=== PATIENT | male | born 1950 | race Caucasian/White ===

== ENCOUNTER 2017-05-23 15:53 | Inpatient (IN) | payer MEDICARE ==
[~2017-05-23] VITALS: Ht 182.9 cm; Wt 113.4 kg
--- OUTSIDE RECORDS SUMMARY | 2017-05-23 15:56 | XMS REPORT | Clinical Summary ---
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 Disp. Refills Start End Date Status Date atorvastatin (LIPITOR) 80 03/13/20 Active MG tablet 16 clopidogrel (PLAVIX) 75 03/13/20 Active mg tablet 16 famotidine (PEPCID) 20 MG 03/13/20 Active tablet 16 FLUoxetine (PROzac) 40 MG 03/23/20 Active capsule 16 TRADJENTA 5 mg tablet 03/13/20 Active 16 lisinopril 03/13/20 Active (PRINIVIL,ZESTRIL) 5 mg 16 tablet metFORMIN (GLUCOPHAGE) 03/13/20 Active 1,000 mg tablet 16 metoprolol tartrate 03/13/20 Active (LOPRESSOR) 50 mg tablet 16 predniSONE (DELTASONE) 10 01/01/20 Active mg tablet 16 triamcinolone (KENALOG) 03/13/20 Active 0.5 % cream 16 rOPINIRole (REQUIP) 0.5 03/15/20 Active MG tablet 16 tamsulosin (FLOMAX) 0.4 02/18/20 Active mg capsule,extended 16 release 24hr Active Problems Problem Noted Date HTN (hypertension) 03/24/2016 DM (diabetes mellitus) 03/24/2016 Hypercholesterolemia 03/24/2016 Sleep apnea 03/24/2016 GERD (gastroesophageal reflux disease) 03/24/2016 CAD (coronary artery disease) 03/24/2016 History of placement of stent in LAD coronary artery 03/24/2016 Preoperative cardiovascular examination 03/24/2016 Encounters Date Type Specialty Care Team Description 07/31/2016 Orders Only Cardiology Brenda Del Angel MD after 05/22/2016 Family History Medical History Relation Name Comments Heart attack Brother Heart attack Father Cancer Mother Relation Name Status Comments Brother Father Mother Social History Tobacco Use Types Packs/Day Years Used Date Never Smoker Alcohol Use Drinks/Week oz/Week Comments No Sex Assigned at Date Recorded Not on file Last Filed Vital Signs Not on file Plan of Treatment Health Maintenance Due Date Last Done Comments FOOT EXAM 1962 OPHTHALMOLOGY EXAM 1962 URINE MICROALBUMIN 1962 COLONOSCOPY 2002 ZOSTER VACCINE 2012 INFLUENZA VACCINE 11/11/2016 Results Not on fileafter 05/22/2016 Insurance Payer Benefit Subscriber ID Type Phone Address Plan / Group MEDICARE MEDICARE [id number] Medicare [place], [place] [address] [place] [id number]
[2017-05-23] MEDS ORDERED: SODIUM CHLORIDE 0.9% 1000ML 1,000 ML IV STA (16:10)
[2017-05-23] MEDS ORDERED: TRADJENTA5 MG PO (16:31)
[2017-05-23] MEDS ORDERED: LISINOPRIL2.5 MG PO (16:31)
[2017-05-23] MEDS ORDERED: FLUOXETINE HCL20 M1 PO (16:31)
[2017-05-23] MEDS ORDERED: ATORVASTATIN CA20 MG PO (16:31)
[2017-05-23] MEDS ORDERED: METOPROLOL TART50 MG PO (16:31)
[2017-05-23] MEDS ORDERED: CLOPIDOGREL75 MG PO (16:31)
[2017-05-23] MEDS ORDERED: METFORMIN HCL500 MG PO (16:31)
[2017-05-23] MEDS ORDERED: FAMOTIDINE20 MG PO (16:31)
[2017-05-23] MEDS ORDERED: FENOFIBRATE67 MG PO (16:31)
[2017-05-23] MEDS ORDERED: ASPIR 8181 MG PO (16:31)
[2017-05-23] MEDS ORDERED: DICLOFENAC SODI75 MG PO (16:31)
[2017-05-23] MEDS ORDERED: MELOXICAM7.5 MG PO (16:31)
[2017-05-23] MEDS ORDERED: CIPRO500 MG PO (16:31)
[2017-05-23] MEDS ORDERED: TAMSULOSIN HCL0.4 MG PO (16:31)
[2017-05-23 17:23] LABS: BASOPHILS # (AUTO) 0.2 (0.0-0.1); BASOPHILS % 1.3 % (0.0-1.0); EOSINOPHILS # (AUTO) 0.4 (0.0-0.4); EOSINOPHILS % 2.5 % (0.0-6.0); HEMATOCRIT 52.9 % (38.2-49.6); HEMOGLOBIN 17.6 g/dL (14.0-18.0); LYMPHOCYTES # (AUTO) 5.1 (1.0-3.2); LYMPHOCYTES % 34.9 % (18.0-39.1); MEAN CORPUSCULAR HEMOGLOBIN 30.1 pg (28-32); MEAN CORPUSCULAR HGB CONC 33.3 g/dL (31-35); MEAN CORPUSCULAR VOLUME 90.6 fL (81-99); MONOCYTES # (AUTO) 1.3 (0.2-0.8); MONOCYTES % 8.5 % (4.4-11.3); NEUTROPHILS # (AUTO) 7.7 (2.1-6.9); NEUTROPHILS % 52.1 % (38.7-80.0); PLATELET COUNT 483 x10e3/uL (140-360); RED BLOOD COUNT 5.84 x10e6/uL (4.3-5.7); RED CELL DISTRIBUTION WIDTH 14.5 % (11.7-14.4)
[2017-05-23 17:31] LABS: INR 1.09; PROTHROMBIN TIME 13.3 seconds (11.9-14.5)
[2017-05-23 17:32] LABS: PARTIAL THROMBOPLASTIN TIME 25.8 seconds (23.8-35.5)
[2017-05-23 17:39] LABS: ALANINE AMINOTRANSFERASE 29 IU/L (0-55); ALBUMIN 3.9 g/dL (3.5-5.0); ALBUMIN/GLOBULIN RATIO 0.8 (0.8-2.0); ALKALINE PHOSPHATASE 59 IU/L (40-150); ANION GAP 16.2 mmol/L (8-16); BLOOD UREA NITROGEN 15 mg/dL (7-26); BUN/CREATININE RATIO 12 (6-25); CALCIUM 9.5 mg/dL (8.4-10.2); CARBON DIOXIDE 20 mmol/L (22-29); CHLORIDE 109 mmol/L (98-107); CREATINE KINASE 63 IU/L (30-200); CREATININE, SERUM 1.23 mg/dL (0.72-1.25); EST GLOMERULAR FILTRATION RATE 59 ML/MIN (60-); GLUCOSE 150 mg/dL (74-118); POTASSIUM 4.2 mmol/L (3.5-5.1); SODIUM 141 mmol/L (136-145)
--- NOTE | 2017-05-23 18:04 | Diagnostic Imaging Report ---
Examination: Single AP view of the chest. COMPARISON: None. INDICATION: Shortness of breath DISCUSSION: Lines/tubes: None. Lungs: The lungs are well inflated and clear. No pneumonia or pulmonary edema. Pleura: There is no pleural effusion or pneumothorax. Heart and mediastinum: The heart and the mediastinum are unremarkable. Bones and soft tissues: No acute bony abnormalities. IMPRESSION: 1. No acute cardiopulmonary abnormalities. Signed by: Dr. Brent Slater M.D. on 05/23/2017 6:00 PM
--- NOTE | 2017-05-23 18:06 | Diagnostic Imaging Report ---
History:weakness Comparison studies:None Technique: Axial images were obtained from the skull base to the vertex. Coronal and sagittal images reconstructed from the axial data. Intravenous contrast: None Findings: A metallic plate which covers an old right parietal craniectomy at the vertex results in artifacts that prevent adequate evaluation from the medina radiata to the vertex. Evaluation is, therefore, limited to the level of the bodies of the lateral ventricles. Scalp/skull: No abnormalities. Extra-axial spaces: No masses. No fluid collections. Brain sulci: Appropriate for age Ventricles: Normal in size and configuration. No hydrocephalus. Parenchyma: No abnormal densities. No masses, hemorrhage, acute or chronic cortical vascular insults. Sellar/suprasellar region: No abnormalities. Craniocervical junction: Patent foramen magnum. No Chiari one malformation. Incidental findings: Atherosclerotic calcifications in the carotid siphons and intracranial vertebral arteries . Impression: Evaluation is limited from the skull base to the level of the lateral ventricles due to artifacts related to a metallic plate which covers an old right parietal craniectomy. 1. No acute abnormalities in the visualized sections through the brain. 2. Mild supratentorial white matter vessel ischemic changes. Signed by: Dr. Fox Orta M.D. on 05/23/2017 6:03 PM
[2017-05-23 18:37] LABS: BILIRUBIN,URINE NEGATIVE (NEGATIVE); CLARITY,URINE CLEAR (CLEAR); COLOR,URINE YELLOW (YELLOW); KETONES,URINE NEGATIVE (NEGATIVE); LEUKOCYTE ESTERASE ,URINE NEGATIVE (NEGATIVE); NITRITE,URINE NEGATIVE (NEGATIVE); URINE UROBILINOGEN 0.2 mg/dL (0.2 - 1)
[2017-05-23 18:51] LABS: PROTEIN,URINE DIPSTICK 1+ (NEGATIVE)
[2017-05-23 19:00] LABS: BACTERIA,URINE FEW /HPF; EPITHELIAL CELLS,URINE RARE /LPF; RBC,URINE 21-50 /HPF (0-5); WBC,URINE (MAN) 0-5 /HPF (0-5)
[2017-05-23] MEDS ORDERED: CEFTRIAXONE SOD 1 GM VIAL IV ONE (19:15)
[2017-05-23] MEDS ORDERED: DEXTROSE 50% SYRINGE 50 ML IV PRN (19:30)
[2017-05-23] MEDS ORDERED: MORPHINE SULFATE 2 MG/ML SYR IV PRN (19:30)
[2017-05-23] MEDS ORDERED: LORAZEPAM INJ 2 MG/ML VIAL IV PRN ×2 (19:45→20:00)
[2017-05-23] MEDS: CEFTRIAXONE SOD 1 GM VIAL IV SCH (19:51)
[2017-05-23] MEDS: SODIUM CHLORIDE 0.9% 1000ML 1,000 ML IV SCH (19:51)
[2017-05-23] MEDS: ONDANSETRON HCL INJ 2 MG/ML VIAL IV PRN (19:52)
[2017-05-23] MEDS: HYDROMORPHONE 2MG/ML 2 MG/ML ML IV PRN (20:30)
[2017-05-23] MEDS: INSULIN REGULAR, HUMAN 100 UNIT/1 ML 3ML VIAL SQ SCH (20:38)
--- OUTSIDE RECORDS SUMMARY | 2017-05-23 20:52 | XMS REPORT ---
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 Allergies, Adverse Reactions, Alerts This patient has no known allergies or adverse reactions. Medications This patient has no known medications. Results Test Description Test Time Test Comments Text Results Atomic Results Result Comments CHEST SINGLE (PORTABLE) [address] [address] Patient Name: UNRULY LYONS MR #: [id number] : 1950 Age/Sex: 66/M Req #: [id number] Adm Physician: Ordered by: TAMARA KU MD Report #: [id number] Location: ER Room/Bed: Procedure: [id number] DX/CHEST SINGLE (PORTABLE) Exam Date: 05/23/17 Exam Time: 1735 REPORT STATUS: Signed Examination: Single AP view of the chest. COMPARISON: None. INDICATION: Shortness of breath DISCUSSION: Lines/tubes: None. Lungs: The lungs are well inflated and clear. No pneumonia or pulmonary edema. Pleura: There is no pleural effusion or pneumothorax. Heart and mediastinum: The heart and the mediastinum are unremarkable. Bones and soft tissues: No acute bony abnormalities. IMPRESSION: 1. No acute cardiopulmonary abnormalities. Signed by: Dr. Augusto Coleman M.D. on 2017 6:00 PM Dictated By: AUGUSTO COLEMAN MD 99 Transcribed By: DULCE MARIA on 05/23/17 1800 COPY TO: TAMARA KU MD CT BRAIN WO [place] [address] Patient Name: UNRULY LYONS MR #: [id number] : 1950 Age/Sex: 66/M Req #: [id number] Adm Physician: Ordered by: TAMARA KU MD Report #: [id number] Location: ER Room/Bed: Procedure: [id number] CT/CT BRAIN WO Exam Date: 05/23/17 Exam Time: 1735 REPORT STATUS: Signed History:weakness Comparison studies:None Technique: Axial images were obtained from the skull base to the vertex. Coronal and sagittal images reconstructed from the axial data. Intravenous contrast: None Findings: A metallic plate which covers an old right parietal craniectomy at the vertex results in artifacts that prevent adequate evaluation from the medina radiata to the vertex. Evaluation is, therefore, limited to the level of the bodies of the lateral ventricles. Scalp/skull : No abnormalities. Extra-axial spaces: No masses. No fluid collections. Brain sulci: Appropriate for age Ventricles: Normal in size and configuration. No hydrocephalus. Parenchyma: No abnormal densities. No masses, hemorrhage, acute or chronic cortical vascular insults. Sellar/suprasellar region: No abnormalities. Craniocervical junction: Patent foramen magnum. No Chiari one malformation. Incidental findings: Atherosclerotic calcifications in the carotid siphons and intracranial vertebral arteries . Impression: Evaluation is limited from the skull base to the level of the lateral ventricles due to artifacts related to a metallic plate which covers an old right parietal craniectomy. 1. No acute abnormalities in the visualized sections through the brain. 2. Mild supratentorial white matter vessel ischemic changes. Signed by: Dr. Fox Orta M.D. on 05/23/2017 6:03 PM Dictated By: FOX CLARKE MD, MD 02 Transcribed By: DULCE MARIA on 05/23/171802 COPY TO: TAMARA KU MD
--- OUTSIDE RECORDS SUMMARY | 2017-05-23 20:52 | XMS REPORT | Clinical Summary ---
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
[2017-05-23] MEDS ORDERED: ATORVASTATIN 20 MG TAB PO SCH (21:00)
[2017-05-23 23:25] VITALS: BP 154/80
[2017-05-24] MEDS: HYDROMORPHONE 2MG/ML 2 MG/ML ML IV PRN ×3 (03:00→23:55)
[2017-05-24] MEDS: SODIUM CHLORIDE 0.9% 1000ML 1,000 ML IV SCH ×3 (06:13→21:19)
[2017-05-24] MEDS: INSULIN REGULAR, HUMAN 100 UNIT/1 ML 3ML VIAL SQ SCH ×4 (07:30→21:00)
[2017-05-24 07:33] LABS: BASOPHILS # (AUTO) 0.2 (0.0-0.1); BASOPHILS % 1.1 % (0.0-1.0); EOSINOPHILS # (AUTO) 0.3 (0.0-0.4); EOSINOPHILS % 2.2 % (0.0-6.0); HEMATOCRIT 49.2 % (38.2-49.6); HEMOGLOBIN 15.8 g/dL (14.0-18.0); LYMPHOCYTES % 35.5 % (18.0-39.1); MEAN CORPUSCULAR HEMOGLOBIN 29.9 pg (28-32); MEAN CORPUSCULAR HGB CONC 32.1 g/dL (31-35); MEAN CORPUSCULAR VOLUME 93.2 fL (81-99); MONOCYTES # (AUTO) 1.2 (0.2-0.8); MONOCYTES % 8.5 % (4.4-11.3); NEUTROPHILS # (AUTO) 7.3 (2.1-6.9); NEUTROPHILS % 52.1 % (38.7-80.0); PLATELET COUNT 431 x10e3/uL (140-360); RED BLOOD COUNT 5.28 x10e6/uL (4.3-5.7); RED CELL DISTRIBUTION WIDTH 14.6 % (11.7-14.4)
[2017-05-24 08:00] VITALS: BP 180/95
[2017-05-24 08:06] LABS: BLOOD UREA NITROGEN 14 mg/dL (7-26); BUN/CREATININE RATIO 14 (6-25); CALCIUM 8.5 mg/dL (8.4-10.2); CARBON DIOXIDE 20 mmol/L (22-29); CHLORIDE 111 mmol/L (98-107); CREATININE, SERUM 1.03 mg/dL (0.72-1.25); EST GLOMERULAR FILTRATION RATE > 60 ML/MIN (60-); GLUCOSE 127 mg/dL (74-118); SODIUM 140 mmol/L (136-145)
[2017-05-24] MEDS: NON-FORMULARY MEDICATION (Linagliptin (Tradjenta) 5 MG) PO SCH (08:17)
[2017-05-24] MEDS: TAMSULOSIN HCL 0.4 MG CAP PO SCH (08:31)
[2017-05-24] MEDS: METOPROLOL TARTRATE 50 MG TAB PO SCH ×2 (08:32→17:00)
[2017-05-24] MEDS: MELOXICAM 7.5 MG TAB PO SCH (08:32)
[2017-05-24] MEDS: LISINOPRIL 2.5 MG TAB PO SCH (08:32)
[2017-05-24] MEDS: CLOPIDOGREL BISULFATE 75 MG TAB PO SCH (08:32)
[2017-05-24] MEDS: FAMOTIDINE 20 MG TAB PO SCH ×2 (08:32→17:00)
[2017-05-24] MEDS: DICLOFENAC SOD 50 MG TAB PO SCH ×2 (08:33→17:00)
[2017-05-24] MEDS: FENOFIBRATE 145 MG TAB PO SCH (08:33)
[2017-05-24] MEDS: FLUOXETINE HCL 20 MG CAP PO SCH (08:33)
[2017-05-24] MEDS ORDERED: NON-FORMULARY MEDICATION (Diclofenac Sodium 75 MG) PO SCH (09:00)
[2017-05-24] MEDS ORDERED: NON-FORMULARY MEDICATION (Fenofibrate,Micronized (Fenofibrate) 160 MG) PO SCH (09:00)
[2017-05-24] MEDS ORDERED: METFORMIN HCL 500 MG TAB PO SCH ×2 (09:00→17:00)
[2017-05-24] MEDS ORDERED: OSELTAMIVIR PHOSPHATE 75 MG CAP PO SCH (09:00)
[2017-05-24] MEDS ORDERED: NON-FORMULARY MEDICATION (Linagliptin (Tradjenta) 5 MG) PO SCH (09:00)
[2017-05-24] MEDS ORDERED: ASPIRIN 81 MG CHEW TAB PO SCH (09:00)
[2017-05-24 09:09] LABS: CREATINE KINASE MB 1.1 ng/mL (0.00-5.00)
[2017-05-24 09:36] VITALS: BP 180/95
--- NOTE | 2017-05-24 09:44 | Diagnostic Imaging Report ---
EXAMINATION: Chest, CHEST SINGLE (PORTABLE) INDICATION: Chest pain COMPARISON: Portable chest 05/23/2017 FINDINGS: LINES: None. Heart: Normal cardiac silhouette. Vascular: The pulmonary vasculature is within normal limits. Atherosclerotic calcifications of the aortic arch. Mediastinum: No mediastinal, hilar, or axillary mass or lymphadenopathy. Lungs: No parenchymal mass. No focal consolidation. Bibasilar atelectasis. Pleura: No pleural effusion. No pneumothorax. Bones: No acute osseous abnormality. Degenerative changes of the thoracic spine. Postoperative changes of the left shoulder. Soft tissues: Normal. Impression: No acute radiographic abnormality. Signed by: Dr. Reymundo Jones M.D. on 05/24/2017 9:40 AM
[2017-05-24 12:20] VITALS: BP 145/91
[2017-05-24] MEDS ORDERED: ACETAMINOPHEN 325 MG SUPP PR PRN (15:15)
[2017-05-24 15:44] LABS: CHOL/HDL RATIO 4.6 (3.9-4.7)
[2017-05-24] MEDS: AZITHROMYCIN 500MG/NS 250 ML 250 ML IV SCH (15:51)
[2017-05-24] MEDS: ENOXAPARIN SODIUM INJ 100 MG/ML SYR SC SCH (15:51)
[2017-05-24 16:00] VITALS: BP 155/91
[2017-05-24 16:19] LABS: CREATINE KINASE 69 IU/L (30-200)
--- NOTE | 2017-05-24 16:19 | History and Physical ---
PRIMARY CARE PHYSICIAN: Dr. Soto. CHIEF COMPLAINT: Weakness. HISTORY OF PRESENT ILLNESS: This is a 66-year-old man with a history of stroke and myocardial infarction, now developing right arm weakness and slurred speech. Therefore, he came to the hospital. Here a CT scan was done, which was negative. He was admitted for further evaluation and management. The patient said he was able to move his right arm 1 week ago. PAST MEDICAL HISTORY 1. Diabetes mellitus, type 2. 2. Hypertension. 3. Stroke. 4. Myocardial infarction, status post stent in January 2017. 5. Ambulatory dysfunction with left above-knee amputation due to injury on the job many years ago. PAST SURGICAL HISTORY 1. Left AKA. 2. Coronary artery stent placement in January 2017. ALLERGIES: PER ELECTRONIC MEDICAL RECORD. FAMILY HISTORY/SOCIAL HISTORY: Patient lives alone. He is single. No children. No alcohol, illicits or cigarettes. MEDICATIONS: Per electronic medical record. REVIEW OF SYSTEMS: Denies any chest pain. PHYSICAL EXAMINATION VITAL SIGNS: Have been reviewed. GENERAL: A tired-appearing man resting in bed. HEENT: Anicteric. Pupils are responsive to light. No oral lesions. CARDIOVASCULAR: Normal S1 and S2. LUNGS: Moderate breath sounds. ABDOMEN: Soft, nontender, nondistended. EXTREMITIES: He has trace edema. He has left AKA with stump site well healed. SKIN: Dry. PSYCHIATRIC: Flat affect. NEUROLOGIC: He is awake, alert and oriented x2. He moves all his extremities, but his right hand is 1/5. His left arm is 4/5. Other extremities are 4/5. He has slurred speech. He has facial asymmetry, and he has drooling. LABS: Reviewed. MEDICATIONS: Reviewed. ASSESSMENT AND PLAN: This is a 66-year-old man. 1. Clinically acute stroke. CT scan is negative. Obtain MRI and MRA of the head and neck. Will start the patient on aspirin. He is already on Plavix. Will also add a statin medication. Will obtain a lipid panel. Will get physical therapy on board. Speech evaluation. Make the patient n.p.o. Put him on Lovenox 100 q.12 h. Consult neurology and get a 2-D echocardiogram to rule out an embolic event. 2. Obesity/diabetes mellitus, type 2. Obtain hemoglobin A1c and lipid panel. Will also use sliding scale and an ADA diet when he is able to eat. 3. Acute kidney injury. Rehydrate and reassess. 4. Acute bronchitis. Patient is not coughing at this time. Will discontinue Tamiflu, as his flu screen was negative. Will reassess. 5. Leukocytosis, unclear etiology. Will treat his acute bronchitis with doxycycline 100 IV q.12 h. for 5 days. 6. Coronary artery disease with history of stent. Will obtain echocardiogram and continue his home dose of Plavix and beta madina, also aspirin. 7. Ambulatory dysfunction with left above-knee amputation. Physical therapy consultation. 8. Prophylaxis: Pepcid while on anticoagulant. 9. Disposition: Start anticoagulation. Obtain 2-D echocardiogram. Obtain MRI and MRA. Physical therapy consultation. Job#: [id number]
[2017-05-24] MEDS: FAMOTIDINE 20 MG/2 ML VIAL IV SCH (17:25)
[2017-05-24 19:50] VITALS: BP 167/106
[2017-05-24] MEDS: CEFTRIAXONE SOD 1 GM VIAL IV SCH (21:00)
[2017-05-24] MEDS: ATORVASTATIN 40 MG TAB PO SCH (21:00)
[2017-05-24] MEDS: ONDANSETRON HCL INJ 2 MG/ML VIAL IV PRN (23:50)
[2017-05-25] VITALS (7 sets, daily range): BP systolic 137–168; BP diastolic 68–106
[2017-05-25] MEDS: SODIUM CHLORIDE 0.9% 1000ML 1,000 ML IV SCH ×2 (03:22→14:12)
[2017-05-25] MEDS: ENOXAPARIN SODIUM INJ 100 MG/ML SYR SC SCH ×2 (04:12→17:00)
[2017-05-25] MEDS: ONDANSETRON HCL INJ 2 MG/ML VIAL IV PRN (06:20)
[2017-05-25] MEDS: HYDROMORPHONE 2MG/ML 2 MG/ML ML IV PRN ×3 (06:21→21:25)
[2017-05-25] MEDS: INSULIN REGULAR, HUMAN 100 UNIT/1 ML 3ML VIAL SQ SCH ×4 (07:30→21:00)
--- NOTE | 2017-05-25 07:33 | Progress Note ---
DATE: May 25, 2017 TIME: 7:05 a.m. OVERNIGHT: CPAP mask in place. Feeling a little better. REVIEW OF SYSTEMS: Denies any dizziness. PHYSICAL EXAMINATION VITAL SIGNS: Reviewed. GENERAL: A tired-appearing man resting in bed. HEENT: Anicteric. CARDIOVASCULAR: Normal S1 and S2. LUNGS: Moderate breath sounds. ABDOMEN: Soft, nontender and nondistended. EXTREMITIES: Trace edema. He left AKA with stump well-healed. SKIN: Dry. PSYCHIATRIC: Flat affect. NEUROLOGICAL: Alert, awake and oriented times 2. Moves all extremities. His right hand is 1/5 in the extremities. Left hand 4/5. He has slurred speech persists. He has facial asymmetry. Some drooling. LABS: Reviewed. MEDICATIONS: Reviewed. ASSESSMENT: A 66-year-old man with: 1. Clinically acute stroke. 2. Obesity/diabetes mellitus, type 2. 3. Acute kidney injury. 4. Acute bronchitis. 5. Leukocytosis. 6. Coronary artery disease with history of stent. 7. Ambulatory dysfunction with left knee amputation. PLAN 1. Leukocytosis beginning to improve. 2. LDL is 84. Hemoglobin A1c 8.9. 3. Influenza screening was negative. 4. MRI imaging is pending. 5. Continue Lovenox 100 mg q.12 h. 6. Continue ceftriaxone and azithromycin for acute bronchitis. 7. Continue Pepcid for GI prophylaxis. 8. Disposition: Follow up MRI and MRA. Continue anticoagulation. Follow up neurology recommendations. Job#: [id number] [place]
[2017-05-25] MEDS: ASPIRIN 81 MG CHEW TAB PO SCH (09:00)
[2017-05-25] MEDS: FENOFIBRATE 145 MG TAB PO SCH (09:00)
[2017-05-25] MEDS: DICLOFENAC SOD 50 MG TAB PO SCH ×2 (09:00→17:00)
[2017-05-25] MEDS: CLOPIDOGREL BISULFATE 75 MG TAB PO SCH (09:00)
[2017-05-25] MEDS: METOPROLOL TARTRATE 50 MG TAB PO SCH ×2 (09:00→17:00)
[2017-05-25] MEDS: MELOXICAM 7.5 MG TAB PO SCH (09:00)
[2017-05-25] MEDS: FAMOTIDINE 20 MG TAB PO SCH (09:00)
[2017-05-25] MEDS: FLUOXETINE HCL 20 MG CAP PO SCH (09:00)
[2017-05-25] MEDS: NON-FORMULARY MEDICATION (Linagliptin (Tradjenta) 5 MG) PO SCH (09:00)
[2017-05-25] MEDS: TAMSULOSIN HCL 0.4 MG CAP PO SCH (09:00)
[2017-05-25] MEDS: LISINOPRIL 2.5 MG TAB PO SCH (09:00)
[2017-05-25] MEDS: FAMOTIDINE 20 MG/2 ML VIAL IV SCH ×2 (09:15→17:00)
[2017-05-25] MEDS: NYSTATIN 100,000 UNITS/GM CRM 30GM TUBE TOP SCH ×2 (10:42→17:15)
--- NOTE | 2017-05-25 14:36 | Consultation ---
DATE OF CONSULTATION: May 25, 2017, at 12 p.m. (noon) NEUROLOGICAL CONSULTATION ATTENDING PHYSICIAN: Dr. Ronal Dwyer REASON FOR CONSULTATION: Stroke. This is a 66-year-old male who has a history of hypertension and diabetes mellitus. Apparently for several days he has been having some slurred speech and weakness of the right arm, the reason for which his sister brought him to the hospital on May 23, 2017. He was seen in the emergency room. He was not able to move the right arm or right leg and had slurred speech. CT scan in the emergency room was negative. The patient was admitted for further evaluation. He has a history of diabetes mellitus. He had a previous stroke. He has myocardial infarction with stents. SURGICAL HISTORY: Above-knee amputation on the left side. Coronary stent that was placed in 2017. ALLERGIES: NONE KNOWN. MEDICATIONS: Have been reviewed in detail. REVIEW OF SYSTEMS: Unable to perform because of the patient's mental status. PHYSICAL EXAMINATION VITAL SIGNS: Blood pressure today was 139/82, pulse 70s. He was afebrile. LUNGS: Clear to auscultation. HEART: Regular sinus rhythm. No murmur. ABDOMEN: Nontender. Soft. LOWER EXTREMITIES: No edema. No cyanosis. No clubbing. NEUROLOGIC EXAMINATION: The patient is awake. Gaze is deviated to the right. Able to follow commands well. Has dysarthric speech, unintelligible. Cranial nerves: Pupils are both equal with sluggish reaction. The extraocular movements are full. Visual ennis are normal. Right facial weakness, central type. The gag reflex is decreased. Marked weakness in the right upper and right lower extremities with extension plantar response on the right side. HEAD: Normocephalic. NECK: Supple. Carotid pulsations were present bilaterally. There was no bruit. LABORATORY WORKUP: Comprehensive metabolic panel: Sodium 140, potassium 4, BUN 14, creatinine 1.03, estimated GFR greater than 60, glucose 127, triglycerides 127, cholesterol 139. Liver enzymes are normal. Urinalysis: 1+ protein, 1+ glucose, 4+ urine. RBCs 21-50. WBCs 0-5. MICROBIOLOGY: Urine culture negative. CT SCAN OF THE BRAIN: Report shows he has a craniotomy on the right side. No acute abnormalities in the parenchyma. Mild supratentorial white matter vascular ischemic changes. IMPRESSION 1. Acute left middle cerebral artery stroke with residual dysarthric speech. Right facial weakness and entire right hemiparesis. Laboratory workup has been reviewed in detail. 2. Hypertension. 3. Diabetes mellitus. 4. Coronary artery disease. The patient is unable to have an MRI of the brain because of the metallic plate on the right side of the head and recent stents. We are going to do a carotid Doppler, echocardiogram, speech therapy, PT evaluation. We are going to have a followup CT scan of the head without contrast today. Job#: [id number]
[2017-05-25] MEDS: AZITHROMYCIN 500MG/NS 250 ML 250 ML IV SCH (16:45)
--- NOTE | 2017-05-25 16:50 | Diagnostic Imaging Report ---
EXAMINATION: Head CT without contrast HISTORY: Acute generalized weakness, evaluate for acute stroke COMPARISON: Head CT and 05/23/2017 TECHNIQUE: Multidetector axial images were obtained without contrast from the foramen magnum to the vertex . The images were reconstructed using brain and bone algorithms. Thin section brain images were reformatted into coronal and sagittal planes. Image quality: A metallic plate which covers an old right parietal craniectomy at the vertex results in artifacts that prevent adequate evaluation from the medina radiata to the vertex. Evaluation is, therefore, limited to the level of the bodies of the lateral ventricles. FINDINGS: Parenchyma: 1. Scattered and mildly confluent periventricular white matter hypodensities, most likely nonspecific chronic microvascular ischemic changes. Age-indeterminate likely chronic lacunar referred in the right thalamus and possibly the left head of the caudate. 2. No mass or hemorrhage. No CT evidence of acute territorial vascular insult. Extra-axial spaces:No abnormal density. No extra-axial fluid collections Brain volume: Normal for age. Ventricles: No hydrocephalus or displacement. Arteries: No density suggestive of thrombus. Dural sinuses: No abnormal density. Extra-axial spaces: No abnormal density. Foramen magnum: No mass, Chiari malformation, or basilar invagination. Sella: No obvious mass. Paranasal/mastoid sinuses: Imaged portions unremarkable. Skull/Scalp: Large right parietal metallic plate which covers an old right parietal craniectomy. IMPRESSION: 1. The superior half of the brain cannot be evaluated due to metallic artifact. 2. Grossly no acute intracranial abnormality in the visualized sections of the brain. Particularly no intracranial hemorrhage. 3. Stable mild chronic microvascular ischemic changes. Signed by: Dr. Elizabeth Su M.D. on 05/25/2017 4:46 PM
[2017-05-25] MEDS: CEFTRIAXONE SOD 1 GM VIAL IV SCH (20:55)
[2017-05-25] MEDS: ATORVASTATIN 40 MG TAB PO SCH (20:55)
[2017-05-25] MEDS ORDERED: LIDOCAINE 5% PATCH TP SCH (23:00)
[2017-05-26] VITALS: BP 158/82
[2017-05-26] MEDS: SODIUM CHLORIDE 0.9% 1000ML 1,000 ML IV SCH ×2 (03:22→11:22)
[2017-05-26 04:00] VITALS: BP 181/99
[2017-05-26] MEDS: ENOXAPARIN SODIUM INJ 100 MG/ML SYR SC SCH ×2 (04:39→16:15)
[2017-05-26] MEDS: LABETALOL HCL 5 MG/ML 20ML VIAL IV PRN (06:30)
[2017-05-26] MEDS: LIDOCAINE 5% PATCH TP SCH (06:50)
[2017-05-26] MEDS: INSULIN REGULAR, HUMAN 100 UNIT/1 ML 3ML VIAL SQ SCH ×4 (07:30→21:00)
[2017-05-26 07:48] VITALS: BP 168/83
[2017-05-26] MEDS: NYSTATIN 100,000 UNITS/GM CRM 30GM TUBE TOP SCH ×2 (08:50→16:38)
[2017-05-26] MEDS: NON-FORMULARY MEDICATION (Linagliptin (Tradjenta) 5 MG) PO SCH (09:00)
[2017-05-26] MEDS: HYDROMORPHONE 2MG/ML 2 MG/ML ML IV PRN ×2 (10:15→18:30)
[2017-05-26] MEDS: FAMOTIDINE 20 MG/2 ML VIAL IV SCH ×2 (11:30→16:37)
[2017-05-26] MEDS: ASPIRIN 81 MG CHEW TAB PO SCH (11:30)
[2017-05-26] MEDS: CLOPIDOGREL BISULFATE 75 MG TAB PO SCH (11:30)
[2017-05-26] MEDS: TAMSULOSIN HCL 0.4 MG CAP PO SCH (11:30)
[2017-05-26] MEDS: FENOFIBRATE 145 MG TAB PO SCH (11:30)
[2017-05-26] MEDS: DICLOFENAC SOD 50 MG TAB PO SCH ×2 (11:30→16:38)
[2017-05-26] MEDS: MELOXICAM 7.5 MG TAB PO SCH (11:30)
[2017-05-26] MEDS: METOPROLOL TARTRATE 50 MG TAB PO SCH ×2 (11:30→16:38)
[2017-05-26] MEDS: LISINOPRIL 2.5 MG TAB PO SCH (11:30)
[2017-05-26] MEDS: FLUOXETINE HCL 20 MG CAP PO SCH (11:30)
[2017-05-26 11:43] VITALS: BP 173/81
--- NOTE | 2017-05-26 15:51 | Diagnostic Imaging Report ---
PROCEDURE:X-RAY RIGHT SHOULDER, COMPLETE COMPARISON:[facility], DX, CHEST SINGLE (PORTABLE), 05/24/2017, 9:16. INDICATIONS:SEVERE PAIN, RT. SHOULDER PAIN FINDINGS: Normal mineralization. No definite acute, displaced fracture or dislocation. No lytic or blastic lesions. Stable degenerative changes in the glenohumeral joint. Soft tissues are unremarkable. Visualized portions of the right lung are clear. CONCLUSION: No definite acute displaced fracture or dislocation. Correlate clinically for need for further imaging. Rahul Nelson M.D. Dictated by: Rahul Nelson M.D. on 05/26/2017 at 16:01 Electronically approved by: Rahul Nelson M.D. on 05/26/2017 at 16:01
[2017-05-26 16:00] VITALS: BP 175/83
[2017-05-26] MEDS: AZITHROMYCIN 500MG/NS 250 ML 250 ML IV SCH (16:00)
[2017-05-26 20:00] VITALS: BP 156/87
[2017-05-26] MEDS: ATORVASTATIN 40 MG TAB PO SCH (20:40)
[2017-05-26] MEDS: CEFTRIAXONE SOD 1 GM VIAL IV SCH (20:40)
[2017-05-27] VITALS (7 sets, daily range): BP systolic 156–196; BP diastolic 86–103
[2017-05-27] MEDS: HYDROMORPHONE 2MG/ML 2 MG/ML ML IV PRN ×3 (02:46→21:45)
[2017-05-27] MEDS ORDERED: HYDROMORPHONE 1MG/1ML INJ ONE ×3 (02:47→21:44)
[2017-05-27] MEDS: SODIUM CHLORIDE 0.9% 1000ML 1,000 ML IV SCH (03:22)
[2017-05-27] MEDS: ENOXAPARIN SODIUM INJ 100 MG/ML SYR SC SCH ×2 (03:33→16:57)
[2017-05-27] MEDS: LABETALOL HCL 5 MG/ML 20ML VIAL IV PRN ×2 (04:39→11:30)
[2017-05-27] MEDS: TRAMADOL/APAP 37.5MG-325MG TAB PO PRN (05:19)
[2017-05-27] MEDS: INSULIN REGULAR, HUMAN 100 UNIT/1 ML 3ML VIAL SQ SCH ×4 (07:30→21:00)
[2017-05-27] MEDS ORDERED: ASPIRIN 300 MG SUPP PR SCH (09:00)
[2017-05-27] MEDS: NON-FORMULARY MEDICATION (Linagliptin (Tradjenta) 5 MG) PO SCH (09:00)
[2017-05-27] MEDS: FAMOTIDINE 20 MG/2 ML VIAL IV SCH ×2 (09:34→17:33)
[2017-05-27] MEDS: METOPROLOL TARTRATE 50 MG TAB PO SCH ×2 (09:34→17:34)
[2017-05-27] MEDS: CLOPIDOGREL BISULFATE 75 MG TAB PO SCH (09:34)
[2017-05-27] MEDS: MELOXICAM 7.5 MG TAB PO SCH (09:34)
[2017-05-27] MEDS: TAMSULOSIN HCL 0.4 MG CAP PO SCH (09:34)
[2017-05-27] MEDS: ASPIRIN 81 MG CHEW TAB PO SCH (09:34)
[2017-05-27] MEDS: FLUOXETINE HCL 20 MG CAP PO SCH (09:35)
[2017-05-27] MEDS: LISINOPRIL 2.5 MG TAB PO SCH (09:35)
[2017-05-27] MEDS: FENOFIBRATE 145 MG TAB PO SCH (09:35)
[2017-05-27] MEDS: DICLOFENAC SOD 50 MG TAB PO SCH ×2 (09:35→17:33)
[2017-05-27] MEDS: NYSTATIN 100,000 UNITS/GM CRM 30GM TUBE TOP SCH ×2 (09:35→17:33)
[2017-05-27] MEDS: LIDOCAINE 5% PATCH TP SCH (09:35)
--- NOTE | 2017-05-27 09:47 | Progress Note ---
DATE: May 26, 2017 Mr. Vaughn suffered a left middle cerebral artery stroke with residual expressive and receptive aphasia, right facial weakness, dysphasia, right hemiparesis. He has history of hypertension, diabetes mellitus. VITAL SIGNS: Today, blood pressure 175/83, pulse 64, afebrile. Report of the CAT scan showed no change from the first one in the emergency room. No acute pathology. 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 He has amputation of the left leg above the knee. The patient today is more awake. He follows commands better than yesterday. Speech is rather dysarthric still. At times, he is able to understand some words. He follows simple verbal commands. He is complaining of right shoulder pain. Extraocular movements were full. Visual field was normal. Right arm painful to move, apparently had some trouble with the right shoulder. The patient is able to wiggle the toes and bend the right knee. The patient is in the process of continuing physical therapy and speech therapy. On the swallowing evaluation, the patient failed to swallow. He has significant dysphagia. He has NG tube. Continue with Lovenox subcutaneously. I have discussed with the sister, on Mr. Vaughn, and the prognosis and the need to start making plans to transfer for rehab. Job#: [id number]
--- NOTE | 2017-05-27 10:11 | Progress Note ---
DATE: May 26, 2017 TIME: 7:30 a.m. OVERNIGHT: No events. REVIEW OF SYSTEMS: Denies any chest pain. PHYSICAL EXAMINATION VITAL SIGNS: Reviewed. GENERAL: A tired-appearing man resting in bed. HEENT: Anicteric. CARDIOVASCULAR: Normal S1 and S2. LUNGS: Moderate breath sounds. ABDOMEN: Soft, nontender and nondistended. EXTREMITIES: He has a left AKA stump well-healed. SKIN: Dry. PSYCHIATRIC: Flat affect. NEUROLOGICAL: Alert and awake, but he has slurred speech. He has facial asymmetry. He has right hand 1/5 motor strength. He has some drooling. LABS: Reviewed. MEDICATIONS: Reviewed. ASSESSMENT: A 67-year-old man with: 1. Clinical acute stroke. 2. Obesity/diabetes mellitus, type 2. 3. Acute kidney injury. 4. Acute bronchitis. 5. Leukocytosis. 6. Coronary artery disease with a history of stent. 7. Ambulatory dysfunction with left knee amputation. PLAN 1. Continue physical therapy. 2. Continue antibiotics. 3. Follow up labs. 4. May need acute inpatient rehab for management of his stroke and regain of his function. 5. Prophylaxis. Continue Pepcid. 6. Disposition. Continue current care. Consult Dr. Tineo of rehab services. Job#: [id number] AIDEN
--- NOTE | 2017-05-27 10:18 | Progress Note ---
DATE: May 27, 2017 TIME: 9:44 a.m. OVERNIGHT: No events. REVIEW OF SYSTEMS: Denies any chest pain. PHYSICAL EXAMINATION VITAL SIGNS: Reviewed. GENERAL: A tired-appearing man resting in bed. HEENT: Anicteric. CARDIOVASCULAR: Normal S1 and S2. LUNGS: Moderate breath sounds. ABDOMEN: Soft and nontender. EXTREMITIES: Trace edema. He has a left AKA stump site well-healed. SKIN: Dry. PSYCHIATRIC: Flat affect. NEUROLOGIC: He is awake and alert. He moves his extremities, but his right arm is 1/5 motor strength. His right shoulder is tender. He has slurred speech. He has facial asymmetry. He has some drooling. He has an NG tube in place. LABS: Reviewed. MEDICATIONS: Reviewed. ASSESSMENT: A 66-year-old man with: 1. Acute stroke with right hand weakness. 2. Obesity/diabetes mellitus, type 2. 3. Acute kidney injury. 4. Acute bronchitis. 5. Leukocytosis. 6. Coronary artery disease with a history of stent. 7. Ambulatory dysfunction with left knee amputation. 8. He has right complex regional pain syndrome of the right shoulder: This is secondary to stroke and could be partly secondary to diabetes as well. Will treat pain. PLAN 1. Continue physical therapy. Dr. Tineo has been consulted for acute rehab evaluation. Will discuss this with his . 2. Continue feeding by NG tube. Will need to swallow eval maybe in 2 days from now. 3. His LDL and hemoglobin A1c were 84 and 8.9. 4. Continue fenofibrate, aspirin, beta madina, Plavix, and Lovenox treatment dose. 5. Uncontrolled hypertension. Discontinue fluids and continue with water flushes and tube feeding. 6. Continue antibiotics. 7. Obtain labs this morning. 8. Glucose well controlled. No need for home insulin regimen. 9. Cultures remain negative. 10. Discharge planning. Physical therapy. Job#: [id number] AIDEN
[2017-05-27 10:29] LABS: BASOPHILS # (AUTO) 0.1 (0.0-0.1); BASOPHILS % 0.9 % (0.0-1.0); EOSINOPHILS # (AUTO) 0.3 (0.0-0.4); EOSINOPHILS % 1.9 % (0.0-6.0); HEMATOCRIT 46.5 % (38.2-49.6); HEMOGLOBIN 15.2 g/dL (14.0-18.0); LYMPHOCYTES # (AUTO) 3.1 (1.0-3.2); LYMPHOCYTES % 21.4 % (18.0-39.1); MEAN CORPUSCULAR HEMOGLOBIN 30.5 pg (28-32); MEAN CORPUSCULAR HGB CONC 32.7 g/dL (31-35); MEAN CORPUSCULAR VOLUME 93.2 fL (81-99); MONOCYTES # (AUTO) 1.2 (0.2-0.8); MONOCYTES % 8.3 % (4.4-11.3); NEUTROPHILS # (AUTO) 9.6 (2.1-6.9); NEUTROPHILS % 66.9 % (38.7-80.0); PLATELET COUNT 422 x10e3/uL (140-360); RED BLOOD COUNT 4.99 x10e6/uL (4.3-5.7); RED CELL DISTRIBUTION WIDTH 14.2 % (11.7-14.4)
--- NOTE | 2017-05-27 10:39 | Cardiology Report ---
DATE OF STUDY: May 24, 2017 ECHOCARDIOGRAM M-MODE: Normal chamber sizes. Left ventricular hypertrophy. Normal contractility. Normal mitral and aortic valves. No pericardial effusion. SECTOR SCAN: Normal chamber sizes. Left ventricular hypertrophy. Normal contractility. Normal mitral, aortic and tricuspid valves. No pericardial effusion. CARDIAC DOPPLER STUDY WITH COLOR: Trace tricuspid regurgitation. CONCLUSIONS 1. Left ventricular hypertrophy with ejection fraction of 65% to 70%. 2. Trace tricuspid regurgitation, probably not clinically significant. Job#: [id number] cc:LUAN NICHOLSON MD
[2017-05-27 10:59] LABS: ANION GAP 15.6 mmol/L (8-16); BLOOD UREA NITROGEN 12 mg/dL (7-26); BUN/CREATININE RATIO 13 (6-25); CALCIUM 9.3 mg/dL (8.4-10.2); CARBON DIOXIDE 21 mmol/L (22-29); CHLORIDE 109 mmol/L (98-107); CREATININE, SERUM 0.96 mg/dL (0.72-1.25); EST GLOMERULAR FILTRATION RATE > 60 ML/MIN (60-); GLUCOSE 137 mg/dL (74-118); POTASSIUM 3.6 mmol/L (3.5-5.1); SODIUM 142 mmol/L (136-145)
[2017-05-27] MEDS: ONDANSETRON HCL INJ 2 MG/ML VIAL IV PRN (13:10)
--- NOTE | 2017-05-27 13:51 | Consultation ---
DATE OF CONSULTATION: May 27, 2017 REHAB CONSULTATION REFERRING PHYSICIAN: Dr. Ronal Dwyer. I would like to thank Dr. Dwyer for asking me to see Mr. Vaughn in consultation. REASON FOR CONSULTATION 1. Status post CVA with dense right-sided hemiplegia. 2. Left AKA. 3. Diabetes. 4. Hypertension. 5. History of previous stroke. HISTORY: This is a 66-year-old male with history of previous CVA who came in with right upper and lower extremity weakness, dysarthria. He came into the hospital. CT was negative. Patient was evaluated by Dr. Arita for neurologic consultation. Patient has an NG tube in place and is significantly impaired. I am being asked to evaluate for rehab needs. PAST MEDICAL HISTORY: Includes a previous CVA, diabetes, hypertension. SURGERIES: Include 1. Traumatic amputation of the left leg with an AKA. 2. Coronary artery stenting placed. ALLERGIES: NO KNOWN DRUG ALLERGIES. HABITS: Nonsmoker, nondrinker. SOCIAL HISTORY: Lives in an apartment with second or third-story level with elevator access. Was a limited ambulator with his left AK prosthesis and could mobilize but was very limited. He has a helper who comes in for a few hours a day . FAMILY HISTORY: Positive for significant coronary artery disease that runs in the family. CONSTITUTIONAL REVIEW OF SYSTEMS GENERAL: Previous CVA. EYES: Denies. EARS: Denies. ORAL: Denies. NECK: Denies. CARDIAC: Denies. LUNGS: Denies. MUSCULOSKELETAL: Had a left AKA. SENSORY: Denies. PHYSICAL EXAMINATION GENERAL: Patient is awake and alert. He can communicate, but he is having difficulty controlling secretions. He is coughing a lot. NG tube is in place. EYES: Extraocular muscles are intact. Visual ennis are intact. He does not appear to have obvious neglect. ORAL: Tongue deviates to the right with protrusion. NECK: Supple. HEART: Regular. LUNGS: Diminished breath sounds. He is coughing intermittently but not bringing up any secretions. ABDOMEN: Nontender, nondistended. VITAL SIGNS: His blood pressure is elevated at 182/103. Temperature 97.7. Respirations 20. Heart rate 63. MANUAL MUSCLE TESTING: Right side 0/5 strength throughout. The left upper extremity demonstrates 5/5 strength of the left arm throughout and left leg throughout. Therapy has been ordered for the patient. He is max assist with bed mobility, able to sit at the edge of the bed for about 25 minutes. Tolerates sitting up for about 5 to 10 minutes. Speech Therapy is following. Unfortunately, there is no occupational therapy in the facility. IMPRESSION 1. Status post cerebrovascular accident with dense right-sided hemiplegia. Workup is in progress. 2. Left above-knee amputation. 3. Hypertension. 4. Diabetes. PLAN: Permissive hypertension but try to get it a little bit lower than it is now. He is already on labetalol IV as needed. I spoke with the family who was present. The biggest issue will be getting him to inpatient rehab eventually and eventually being able to get home as he only has 1 helper. Right now they have no idea who is going to be able to help with his home situation. The fact that he has a previous left AKA further complicates matters. Patient will be started on therapy, and we will see how he responds. Thank you once again for allowing me to participate in the care of this pleasant but very unfortunate patient. Job#: [id number] EV
[2017-05-27] MEDS: HYDRALAZINE HCL 25 MG TAB PO SCH ×2 (14:48→23:50)
[2017-05-27] MEDS ORDERED: HYDRALAZINE HCL 25 MG TAB PO SCH (15:00)
[2017-05-27] MEDS: AZITHROMYCIN 500MG/NS 250 ML 250 ML IV SCH (16:16)
[2017-05-27] MEDS ORDERED: GABAPENTIN 100 MG CAP PO SCH (17:00)
[2017-05-27] MEDS: CYCLOBENZAPRINE HCL 10 MG TAB PO SCH (17:33)
--- NOTE | 2017-05-27 17:42 | Consultation ---
DATE OF CONSULTATION: NO DICTATION, length 0 minutes 6 seconds. Job#: [id number] EV
--- NOTE | 2017-05-27 17:52 | Progress Note ---
DATE: May 27, 2017 NEUROLOGICAL PROGRESS NOTE Mr. Vaughn has diagnosis of left CVA with residual right hemiparesis, right facial weakness central type, dysarthric speech, and dysphagia. He seems today to be more awake. He follows commands well. He has still dysarthric speech but able to understand at times. He denies any headache. He denies any dizziness. He follows commands well. Vital signs today: Blood pressure 168/91, pulse 71, afebrile. Laboratory workup today: CBC shows a white count 14,300 with a hemoglobin 15.2, hematocrit 46.5, platelets 422,000. Chemistry: Sodium 142, potassium 3.6, BUN 20, creatinine 0.96, estimated GFR greater than 60, blood sugar 137. The physical therapist has started working with him. This patient is going to take quite some time, has a significant stroke in the left side. We were unable to do the MRI because he has an AICD. His status is gradually improving. Job#: [id number] EV
[2017-05-27] MEDS: ATORVASTATIN 40 MG TAB PO SCH (20:25)
[2017-05-27] MEDS: CEFTRIAXONE SOD 1 GM VIAL IV SCH (20:25)
[2017-05-28] VITALS (7 sets, daily range): BP systolic 123–178; BP diastolic 74–102
[2017-05-28] MEDS: ENOXAPARIN SODIUM INJ 100 MG/ML SYR SC SCH ×2 (04:23→17:12)
[2017-05-28] MEDS: HYDRALAZINE HCL 25 MG TAB PO SCH ×3 (06:00→21:53)
[2017-05-28] MEDS: INSULIN REGULAR, HUMAN 100 UNIT/1 ML 3ML VIAL SQ SCH ×4 (07:30→20:12)
[2017-05-28] MEDS: NON-FORMULARY MEDICATION (Linagliptin (Tradjenta) 5 MG) PO SCH (09:00)
[2017-05-28] MEDS: CLOPIDOGREL BISULFATE 75 MG TAB PO SCH (09:00)
[2017-05-28] MEDS: ASPIRIN 81 MG CHEW TAB PO SCH (09:00)
[2017-05-28] MEDS: LISINOPRIL 2.5 MG TAB PO SCH (09:00)
[2017-05-28] MEDS: CYCLOBENZAPRINE HCL 10 MG TAB PO SCH ×2 (09:00→17:12)
[2017-05-28] MEDS: LIDOCAINE 5% PATCH TP SCH (09:00)
[2017-05-28] MEDS: DICLOFENAC SOD 50 MG TAB PO SCH ×2 (09:00→17:14)
[2017-05-28] MEDS: MELOXICAM 7.5 MG TAB PO SCH (09:00)
[2017-05-28] MEDS: FENOFIBRATE 145 MG TAB PO SCH (09:00)
[2017-05-28] MEDS: METOPROLOL TARTRATE 50 MG TAB PO SCH ×2 (09:00→17:14)
[2017-05-28] MEDS: NYSTATIN 100,000 UNITS/GM CRM 30GM TUBE TOP SCH ×2 (09:00→17:14)
[2017-05-28] MEDS: FAMOTIDINE 20 MG/2 ML VIAL IV SCH ×2 (09:00→17:12)
[2017-05-28] MEDS: FLUOXETINE HCL 20 MG CAP PO SCH (09:00)
[2017-05-28] MEDS: TAMSULOSIN HCL 0.4 MG CAP PO SCH (09:00)
--- NOTE | 2017-05-28 09:35 | Progress Note ---
DATE: May 28, 2017 TIME: 8 a.m. OVERNIGHT: NG tube in place. REVIEW OF SYSTEMS: Unobtainable. PHYSICAL EXAMINATION VITAL SIGNS: Reviewed. GENERAL: A tired-appearing man resting in bed. HEENT: Anicteric. He has an NG tube in place. CARDIOVASCULAR: Normal S1 and S2. LUNGS: He has mildly coarse breath sounds. ABDOMEN: Soft and nontender. EXTREMITIES: He left AKA well-healed. He has right leg with no edema. SKIN: Dry. He does have some amount of coagulated blood on his chin/neck region possibly from scratching his skin. PSYCHIATRIC: Flat affect. LABS: Reviewed. MEDICATIONS: Reviewed. ASSESSMENT: A 66-year-old man with: 1. Acute stroke with right-sided weakness. 2. Obesity with diabetes mellitus, type 2. 3. Acute kidney injury. 4. Dysphagia: Status post nasogastric tube placement. 5. Acute bronchitis. 6. Coronary artery disease with history of stent. 7. Ambulatory dysfunction with left knee amputation. 8. Complex regional pain syndrome of the right shoulder. PLAN 1. Continue physical therapy. 2. Continue gabapentin for right shoulder discomfort. Right arm function is improving. 3. Hemoglobin A1c was 8.9, uncontrolled, and LDL was 84. 4. Continue fenofibrate, aspirin, beta madina, Plavix, and Lovenox. 5. He has persistent leukocytosis. He is on ceftriaxone. Will follow up labs in the morning. 6. Continue Flexeril and titrate gabapentin up to 100 mg q.8 h. 7. Continue physical therapy. 8. Follow up ultrasound of the carotids. 9. I have discussed the case with at bedside. Job#: [id number] AIDEN
--- NOTE | 2017-05-28 12:10 | Diagnostic Imaging Report ---
PROCEDURE:X-RAY ABDOMEN - KUB COMPARISON:None. INDICATIONS:NG TUBE PLACEMENT FINDINGS: Nasogastric tube extends below the diaphragm. There are no dilated loops of bowel to suggest obstruction. There are no masses or abnormal calcifications. There is no evidence of free air. No acute osseous abnormalities are present. CONCLUSION: 1. No acute abdominal abnormality. 2. NG tube as described above. Sarbjit Moser D.O. Dictated by: Sarbjit Moser D.O. on 05/28/2017 at 12:10 Electronically approved by: Sarbjit Moser D.O. on 05/28/2017 at 12:10
[2017-05-28] MEDS ORDERED: DIPHENHYDRAMINE HCL ELIX 12.5 MG/5 ML UDC NG ONE (12:15)
[2017-05-28] MEDS: HYDROMORPHONE 2MG/ML 2 MG/ML ML IV PRN (12:25)
[2017-05-28] MEDS: GABAPENTIN 100 MG CAP PO SCH ×2 (14:07→21:53)
[2017-05-28] MEDS: AZITHROMYCIN 500MG/NS 250 ML 250 ML IV SCH (15:30)
[2017-05-28] MEDS: ATORVASTATIN 40 MG TAB PO SCH (20:22)
[2017-05-28] MEDS: CEFTRIAXONE SOD 1 GM VIAL IV SCH (20:22)
[2017-05-28] MEDS: TRAMADOL/APAP 37.5MG-325MG TAB PO PRN (20:29)
[2017-05-29] VITALS (8 sets, daily range): BP systolic 119–177; BP diastolic 51–106
[2017-05-29] MEDS: HYDROMORPHONE 2MG/ML 2 MG/ML ML IV PRN ×2 (02:38→15:10)
[2017-05-29] MEDS: ENOXAPARIN SODIUM INJ 100 MG/ML SYR SC SCH (05:16)
[2017-05-29] MEDS: GABAPENTIN 100 MG CAP PO SCH ×3 (06:59→22:02)
[2017-05-29] MEDS: HYDRALAZINE HCL 25 MG TAB PO SCH ×3 (06:59→22:02)
[2017-05-29] MEDS: INSULIN REGULAR, HUMAN 100 UNIT/1 ML 3ML VIAL SQ SCH ×4 (07:30→21:57)
[2017-05-29] MEDS: NON-FORMULARY MEDICATION (Linagliptin (Tradjenta) 5 MG) PO SCH (09:00)
--- NOTE | 2017-05-29 09:21 | Progress Note ---
DATE: May 29, 2017 TIME: 7:45 a.m. OVERNIGHT: More alert. REVIEW OF SYSTEMS: Denies any chest pain. VITAL SIGNS: Reviewed. PHYSICAL EXAMINATION GENERAL: A tired-appearing man resting in bed. HEENT: Anicteric. NG tube in place. CARDIOVASCULAR: Normal S1 and S2. LUNGS: Moderate breath sounds. ABDOMEN: Soft, nontender and nondistended. EXTREMITIES: He has weakness in the right arm and tenderness to the right shoulder, but it is less compared to previously. He has left AKA, and the stump site is well healed. SKIN: Dry. PSYCHIATRIC: Flat affect. LABS: Reviewed. MEDICATIONS: Reviewed. ASSESSMENT: A 66-year-old man. 1. Acute stroke with right-sided weakness. 2. Obesity and diabetes mellitus, type 2. 3. Acute kidney injury. 4. Dysphagia with nasogastric tube in place. 5. Acute bronchitis. 6. Coronary artery disease with history of stent. 7. Ambulatory dysfunction with left knee amputation. 8. Complex regional pain syndrome of right shoulder. PLAN 1. Continue physical therapy. 2. Titrate gabapentin up. 3. Follow up swallow eval. 4. Hemoglobin A1c is 8.9 and LDL 84. 5. Follow up ultrasound of the carotids. 6. Continue physical therapy. 7. Discharge planning is in process for [facility]. 8. All cultures remain negative. 9. Patient likely will need a PEG. We will consult GI service. Job#: [id number]
[2017-05-29] MEDS: ASPIRIN 81 MG CHEW TAB PO SCH (09:36)
[2017-05-29] MEDS: FAMOTIDINE 20 MG/2 ML VIAL IV SCH ×2 (09:36→17:14)
[2017-05-29] MEDS: MELOXICAM 7.5 MG TAB PO SCH (09:42)
[2017-05-29] MEDS: TAMSULOSIN HCL 0.4 MG CAP PO SCH (09:42)
[2017-05-29] MEDS: CYCLOBENZAPRINE HCL 10 MG TAB PO SCH ×2 (09:42→17:14)
[2017-05-29] MEDS: METOPROLOL TARTRATE 50 MG TAB PO SCH ×2 (09:42→17:14)
[2017-05-29] MEDS: FENOFIBRATE 145 MG TAB PO SCH (09:43)
[2017-05-29] MEDS: CLOPIDOGREL BISULFATE 75 MG TAB PO SCH (09:43)
[2017-05-29] MEDS: NYSTATIN 100,000 UNITS/GM CRM 30GM TUBE TOP SCH ×2 (09:43→17:14)
[2017-05-29] MEDS: AMLODIPINE BESYLATE 10 MG TAB PO SCH (09:43)
[2017-05-29] MEDS: FLUOXETINE HCL 20 MG CAP PO SCH (09:43)
[2017-05-29] MEDS: LIDOCAINE 5% PATCH TP SCH (09:43)
[2017-05-29] MEDS: DICLOFENAC SOD 50 MG TAB PO SCH ×2 (09:43→17:14)
[2017-05-29] MEDS: SENNOSIDES 8.6 MG TAB PO SCH ×2 (09:43→17:14)
[2017-05-29] MEDS: LISINOPRIL 2.5 MG TAB PO SCH (09:43)
--- NOTE | 2017-05-29 12:17 | Cardiology Report ---
DATE OF STUDY: DOPPLER SCAN OF THE CAROTID ATTENDING PHYSICIAN: Dr. Ronal Dwyer. The left and right carotid arteries were interrogated using the duplex scanning method. Left carotid artery shows mild intimal thickening and plaquing without high-grade stenosis or flow impairment. Left vertebral flow appears to be antegrade. Right carotid artery shows mild intimal thickening and plaquing without high-grade stenosis or flow impairment. Right vertebral flow appears to be antegrade. CONCLUSION 1. No high-grade stenosis bilaterally. 2. Mild intimal thickening and plaquing bilaterally, particularly at the carotid bulbs bilaterally and the left common carotid artery. 3. Vertebral flow appears to be in normal direction bilaterally. Job#: [id number] PAT cc: Ronal Dwyer MD
[2017-05-29] MEDS ORDERED: METOCLOPRAMIDE HCL 10 MG/2ML VIAL IV ONE (12:45)
--- NOTE | 2017-05-29 14:43 | Diagnostic Imaging Report ---
PROCEDURE:X-RAY MODIFIED BARIUM SWALLOW COMPARISON:None. INDICATIONS:Not provided. DISCUSSION:Fluoroscopic examination was performed in conjunction with speech pathology, during swallowing of a variety of thin and thick liquid consistencies. Laryngeal penetration into the laryngeal vestibule with nectar thick liquids to the level of the vocal cords, shallow penetration with thick and pured that cleared with subsequent swallows. Laryngeal aspiration of nectar thick liquids not directly visualized, however, highly suspected secondary to immediate cough following swallow but image not captured by fluoroscopy. CONCLUSION:Laryngeal penetration with nectar thick liquids. Suspicion for aspiration with nectar thick liquids as detailed above. Please refer to speech pathologist report for additional findings and recommendations. Jesús Arauz M.D. Dictated by: Jesús Arauz M.D. on 05/29/2017 at 14:43 Electronically approved by: Jesús Arauz M.D. on 05/29/2017 at 14:43
[2017-05-29] MEDS: DIPHENHYDRAMINE HCL ELIX 12.5 MG/5 ML UDC NG PRN (17:55)
[2017-05-29] MEDS: CEFTRIAXONE SOD 1 GM VIAL IV SCH (21:01)
[2017-05-29] MEDS: ATORVASTATIN 40 MG TAB PO SCH (21:01)
[2017-05-30] VITALS (7 sets, daily range): BP systolic 147–188; BP diastolic 73–91
[2017-05-30] MEDS: GABAPENTIN 100 MG CAP PO SCH ×3 (06:41→22:00)
[2017-05-30] MEDS: HYDRALAZINE HCL 25 MG TAB PO SCH ×3 (06:51→22:00)
[2017-05-30] MEDS: INSULIN REGULAR, HUMAN 100 UNIT/1 ML 3ML VIAL SQ SCH ×4 (07:30→21:00)
[2017-05-30] MEDS: FAMOTIDINE 20 MG/2 ML VIAL IV SCH ×2 (08:50→17:19)
[2017-05-30] MEDS: ASPIRIN 81 MG CHEW TAB PO SCH (08:50)
[2017-05-30] MEDS: LISINOPRIL 2.5 MG TAB PO SCH (08:51)
[2017-05-30] MEDS: CYCLOBENZAPRINE HCL 10 MG TAB PO SCH ×2 (08:51→17:20)
[2017-05-30] MEDS: METOPROLOL TARTRATE 50 MG TAB PO SCH ×2 (08:51→17:18)
[2017-05-30] MEDS: AMLODIPINE BESYLATE 10 MG TAB PO SCH (08:51)
[2017-05-30] MEDS: FLUOXETINE HCL 20 MG CAP PO SCH (08:51)
[2017-05-30] MEDS: TAMSULOSIN HCL 0.4 MG CAP PO SCH (08:51)
[2017-05-30] MEDS: SENNOSIDES 8.6 MG TAB PO SCH ×2 (08:51→17:18)
[2017-05-30] MEDS: MELOXICAM 7.5 MG TAB PO SCH (08:51)
[2017-05-30] MEDS: FENOFIBRATE 145 MG TAB PO SCH (08:51)
[2017-05-30] MEDS: NYSTATIN 100,000 UNITS/GM CRM 30GM TUBE TOP SCH ×2 (08:52→17:18)
[2017-05-30] MEDS: LIDOCAINE 5% PATCH TP SCH (08:52)
[2017-05-30] MEDS: DICLOFENAC SOD 50 MG TAB PO SCH ×2 (08:52→17:18)
[2017-05-30] MEDS: NON-FORMULARY MEDICATION (Linagliptin (Tradjenta) 5 MG) PO SCH (08:53)
[2017-05-30] MEDS ORDERED: LISINOPRIL 2.5 MG TAB PO SCH (13:15)
[2017-05-30] MEDS ORDERED: ALPRAZOLAM 0.25 MG TAB PO PRN (13:30)
[2017-05-30] MEDS ORDERED: ZOLPIDEM TARTRATE 5 MG TAB PO PRN (13:30)
--- NOTE | 2017-05-30 14:08 | Progress Note ---
DATE: May 30, 2017 TIME: 12:00 noon. OVERNIGHT: No events. No change. REVIEW OF SYSTEMS: Denies any chest pain. PHYSICAL EXAMINATION VITAL SIGNS: Reviewed. GENERAL: A tired-appearing man, resting in bed. HEENT: Anicteric. NG tube in place. CARDIOVASCULAR: Normal S1 and S2. LUNGS: Moderate breath sounds. Mildly coarse. ABDOMEN: Soft, nontender, and nondistended. EXTREMITIES: He has left AKA. Stump site is well healed. SKIN: Dry. PSYCHIATRIC: Flat affect. NEUROLOGICAL: He is alert and awake and appropriate. He has slurred speech. LABS: Reviewed. MEDICATIONS: Reviewed. ASSESSMENT: A 66-year-old man with; 1. Acute stroke with right-sided weakness and slurred speech. 2. Dysphagia, status post nasogastric tube placement. 3. Obesity and diabetes mellitus type 2. Hemoglobin A1C 8.9 and LDL 84. 4. Acute kidney injury. 5. Acute bronchitis. 6. Coronary artery disease with history of stent. 7. Ambulatory dysfunction with left knee amputation. 8. Complex regional pain syndrome of the right shoulder. PLAN 1. Continue pain control. 2. Continue physical therapy. 3. Continue NG tube. 4. Plan to recheck swallow evaluation on Thursday. Possible PEG tube placement needed. 5. Followup ultrasound of the carotid. 6. All cultures remained negative. 7. Obtain labs tomorrow. 8. Discharge plan to [facility] for rehab services. Job#: [id number] [facility]
[2017-05-30] MEDS: NIFEDIPINE CR 30 MG TAB PO SCH ×2 (14:46→21:00)
[2017-05-30] MEDS: LISINOPRIL 10 MG TAB PO SCH (14:46)
[2017-05-30] MEDS: DIPHENHYDRAMINE HCL ELIX 12.5 MG/5 ML UDC NG PRN (15:00)
[2017-05-30] MEDS: CEFTRIAXONE SOD 1 GM VIAL IV SCH (20:10)
[2017-05-30] MEDS: ATORVASTATIN 40 MG TAB PO SCH (21:00)
[2017-05-30] MEDS ORDERED: BISACODYL 10 MG SUPP PR PRN (21:15)
[2017-05-30] MEDS: DOCUSATE SODIUM LIQD 100 MG/10 ML UDC NG SCH (21:15)
--- NOTE | 2017-05-30 22:12 | Diagnostic Imaging Report ---
ABDOMEN-1VIEW (KUB) Clinical history: Check NG tube placement Technique: AP view abdomen Comparison: None Findings: See impression Impression: Markedly degraded by portable technique and motion artifact. NG tube is seen at least to the distal esophagus. Signed by: Dr Whitley Linares MD on 05/30/2017 10:09 PM
[2017-05-30] MEDS: MORPHINE SULFATE 2 MG/ML SYR IV PRN (23:36)
[2017-05-30] MEDS: ONDANSETRON HCL INJ 2 MG/ML VIAL IV PRN (23:50)
[2017-05-31] VITALS (7 sets, daily range): BP systolic 136–184; BP diastolic 68–99
[2017-05-31] MEDS: LABETALOL HCL 5 MG/ML 20ML VIAL IV PRN (00:40)
--- NOTE | 2017-05-31 01:22 | Diagnostic Imaging Report ---
ABDOMEN-1VIEW (KUB) Clinical history: Check NG tube placement Technique: AP view abdomen Comparison: 05/30/2017 Findings: See impression. Contrast is noted in the colon. Impression: Markedly degraded by motion artifact. NG tube is seen to the level of the distal esophagus/GE junction. Signed by: Dr Whitley Linares MD on 05/31/2017 1:19 AM
[2017-05-31] MEDS: HYDRALAZINE HCL 25 MG TAB PO SCH ×3 (06:00→21:55)
[2017-05-31] MEDS: GABAPENTIN 100 MG CAP PO SCH ×3 (06:00→21:56)
[2017-05-31 07:16] LABS: BASOPHILS # (AUTO) 0.2 (0.0-0.1); BASOPHILS % 0.9 % (0.0-1.0); EOSINOPHILS # (AUTO) 0.7 (0.0-0.4); EOSINOPHILS % 4.1 % (0.0-6.0); HEMATOCRIT 45.8 % (38.2-49.6); HEMOGLOBIN 15.3 g/dL (14.0-18.0); LYMPHOCYTES # (AUTO) 4.1 (1.0-3.2); LYMPHOCYTES % 24.5 % (18.0-39.1); MEAN CORPUSCULAR HEMOGLOBIN 30.4 pg (28-32); MEAN CORPUSCULAR HGB CONC 33.4 g/dL (31-35); MEAN CORPUSCULAR VOLUME 91.1 fL (81-99); MONOCYTES # (AUTO) 1.4 (0.2-0.8); MONOCYTES % 8.6 % (4.4-11.3); NEUTROPHILS # (AUTO) 10.3 (2.1-6.9); NEUTROPHILS % 61.4 % (38.7-80.0); PLATELET COUNT 416 x10e3/uL (140-360); RED BLOOD COUNT 5.03 x10e6/uL (4.3-5.7); RED CELL DISTRIBUTION WIDTH 14.8 % (11.7-14.4)
[2017-05-31] MEDS: INSULIN REGULAR, HUMAN 100 UNIT/1 ML 3ML VIAL SQ SCH ×4 (07:30→21:00)
[2017-05-31 07:42] LABS: ANION GAP 13.7 mmol/L (8-16); BLOOD UREA NITROGEN 18 mg/dL (7-26); BUN/CREATININE RATIO 16 (6-25); CALCIUM 9.5 mg/dL (8.4-10.2); CARBON DIOXIDE 25 mmol/L (22-29); CHLORIDE 108 mmol/L (98-107); CREATININE, SERUM 1.15 mg/dL (0.72-1.25); EST GLOMERULAR FILTRATION RATE > 60 ML/MIN (60-); GLUCOSE 127 mg/dL (74-118); POTASSIUM 3.7 mmol/L (3.5-5.1); SODIUM 143 mmol/L (136-145)
[2017-05-31] MEDS: LIDOCAINE 5% PATCH TP SCH (09:00)
[2017-05-31] MEDS: FAMOTIDINE 20 MG/2 ML VIAL IV SCH ×2 (09:00→17:06)
[2017-05-31] MEDS: CYCLOBENZAPRINE HCL 10 MG TAB PO SCH ×2 (09:00→16:02)
[2017-05-31] MEDS: NON-FORMULARY MEDICATION (Linagliptin (Tradjenta) 5 MG) PO SCH (09:00)
[2017-05-31] MEDS: MELOXICAM 7.5 MG TAB PO SCH (09:00)
[2017-05-31] MEDS: DICLOFENAC SOD 50 MG TAB PO SCH ×2 (09:00→16:03)
[2017-05-31] MEDS: ASPIRIN 81 MG CHEW TAB PO SCH (09:00)
[2017-05-31] MEDS: METOPROLOL TARTRATE 50 MG TAB PO SCH ×2 (09:00→16:02)
[2017-05-31] MEDS: SENNA-S TABLET PO SCH ×2 (09:00→16:03)
[2017-05-31] MEDS: DOCUSATE SODIUM LIQD 100 MG/10 ML UDC NG SCH ×2 (09:00→16:02)
[2017-05-31] MEDS: SENNOSIDES 8.6 MG TAB PO SCH ×2 (09:00→16:02)
[2017-05-31] MEDS: TAMSULOSIN HCL 0.4 MG CAP PO SCH (09:00)
[2017-05-31] MEDS: FENOFIBRATE 145 MG TAB PO SCH (09:00)
[2017-05-31] MEDS: FLUOXETINE HCL 20 MG CAP PO SCH (09:00)
[2017-05-31] MEDS: NIFEDIPINE CR 30 MG TAB PO SCH ×2 (09:00→21:00)
[2017-05-31] MEDS: NYSTATIN 100,000 UNITS/GM CRM 30GM TUBE TOP SCH ×2 (09:00→16:03)
[2017-05-31] MEDS: LISINOPRIL 10 MG TAB PO SCH (09:00)
[2017-05-31] MEDS: ONDANSETRON HCL INJ 2 MG/ML VIAL IV PRN (09:13)
[2017-05-31] MEDS: MORPHINE SULFATE 2 MG/ML SYR IV PRN ×2 (09:13→20:25)
--- NOTE | 2017-05-31 10:53 | Diagnostic Imaging Report ---
Examination: Limited Single AP view of the chest. COMPARISON: KUB dated 05/31/2017. INDICATION: Nasogastric tube placement. DISCUSSION: Only the half portion of the thorax was included. Lines/tubes: NG/orogastric tube with distal portion coiled within the stomach with distal tip likely in the midesophagus. Abdomen: Residual contrast within the colon. Nonobstructive bowel gas pattern. IMPRESSION: 1. NG/orogastric tube coiled within the esophagus. Recommend repositioning. Signed by: Dr. Jesús Arauz M.D. on 05/31/2017 10:49 AM
[2017-05-31] MEDS: LABETALOL HCL 5 MG/ML 20ML VIAL IV SCH ×2 (12:14→17:07)
--- NOTE | 2017-05-31 12:52 | Progress Note ---
DATE: May 31, 2017 MEDICINE PROGRESS NOTE TIME OF SERVICE: 11 a.m. SUBJECTIVE: Overnight the patient pulled his NG tube out. REVIEW OF SYSTEMS: Denies any chest pain. VITAL SIGNS: Reviewed. PHYSICAL EXAMINATION GENERAL APPEARANCE: A tired-appearing man resting in bed. HEENT: Anicteric. CARDIOVASCULAR: Normal S1/S2. LUNGS: Moderate breath sounds. ABDOMEN: Soft, nontender, nondistended. EXTREMITIES: He has left AKA. He has stump site well healed. SKIN: Dry. PSYCHIATRIC: Flat affect. NEUROLOGICALLY: Awake and alert. Slurred speech. LABS: Reviewed. MEDICATIONS: Reviewed. ASSESSMENT: A 66-year-old man. 1. Acute stroke with right-sided weakness and slurred speech. 2. Dysphagia. 3. Obesity and diabetes mellitus type 2. Hemoglobin A1c 8.9, LDL 84. 4. Acute kidney injury. 5. Acute bronchitis. 6. Coronary artery disease with history of stent. 7. Ambulatory dysfunction with left [id number] amputation. 8. Complex regional pain syndrome of the right shoulder. PLAN 1. Continue pain control. 2. Continue gabapentin. 3. Continue physical therapy. 4. PEG tube planning for tomorrow. 5. Control blood pressure with scheduled IV beta madina. 6. Leukocytosis persists. 7. All cultures remain negative. 8. Chest x-ray today reviewed. 9. Ultrasound of the carotids still pending. The preliminary report shows no evidence of significant disease. Job#: [id number] EV
[2017-05-31] MEDS: DEXTROSE 5% 1,000 ML IV SCH (19:11)
[2017-05-31] MEDS: CEFTRIAXONE SOD 1 GM VIAL IV SCH (20:25)
[2017-05-31] MEDS: ATORVASTATIN 40 MG TAB PO SCH (21:00)
[2017-06-01] VITALS: BP_SYST 141; BP_SYST 150; BP_DIAS 68; BP_DIAS 74
[2017-06-01] MEDS: LABETALOL HCL 5 MG/ML 20ML VIAL IV SCH ×4 (00:10→17:55)
[2017-06-01] MEDS: LEVOFLOXACIN 750MG/D5W 150ML 150 ML IV SCH (06:00)
[2017-06-01] MEDS: GABAPENTIN 100 MG CAP PO SCH ×3 (06:00→21:40)
[2017-06-01] MEDS: HYDRALAZINE HCL 25 MG TAB PO SCH ×3 (06:00→21:40)
--- NOTE | 2017-06-01 06:26 | Progress Note ---
DATE: June 01, 2017 TIME: 5:50 a.m. OVERNIGHT: No events. REVIEW OF SYSTEMS: Denies any chest pain. PHYSICAL EXAMINATION VITAL SIGNS: Reviewed. GENERAL: A tired-appearing man resting in bed. HEENT: Anicteric. CARDIOVASCULAR: Normal S1 and S2. LUNGS: Moderate breath sounds. ABDOMEN: Soft, nontender and nondistended. EXTREMITIES: He has left AKA well-healed. SKIN: Dry. PSYCHIATRIC: Flat affect. NEUROLOGICAL: Alert and awake. Slurred speech. LABS: Reviewed. MEDICATIONS: Reviewed. ASSESSMENT: A 66-year-old man with: 1. Acute stroke with right-sided weakness and slurred speech. 2. Dysphagia. 3. Obesity. 4. Diabetes mellitus, type 2: Hemoglobin A1c 8.9, LDL 84. 5. Acute kidney injury. 6. Acute bronchitis. 7. Coronary artery disease with history of stent. 8. Ambulatory dysfunction with left above-knee amputation. 9. Complex regional pain syndrome of the right shoulder. PLAN 1. Continue pain control and gabapentin. 2. Continue physical therapy. 3. PEG tube pending today. 4. Blood pressure has improved with scheduled IV beta madina. 5. Ultrasound report of the carotids still pending. 6. Echocardiogram showed normal left ventricular ejection fraction. There is only trace tricuspid regurgitation. Job#: [id number] AIDEN
[2017-06-01 07:09] LABS: BASOPHILS # (AUTO) 0.2 (0.0-0.1); EOSINOPHILS # (AUTO) 0.7 (0.0-0.4); EOSINOPHILS % 4.5 % (0.0-6.0); HEMATOCRIT 46.5 % (38.2-49.6); HEMOGLOBIN 15.1 g/dL (14.0-18.0); LYMPHOCYTES # (AUTO) 4.7 (1.0-3.2); LYMPHOCYTES % 32.2 % (18.0-39.1); MEAN CORPUSCULAR HEMOGLOBIN 29.9 pg (28-32); MEAN CORPUSCULAR HGB CONC 32.5 g/dL (31-35); MEAN CORPUSCULAR VOLUME 92.1 fL (81-99); MONOCYTES # (AUTO) 1.3 (0.2-0.8); MONOCYTES % 8.9 % (4.4-11.3); NEUTROPHILS # (AUTO) 7.7 (2.1-6.9); NEUTROPHILS % 52.7 % (38.7-80.0); PLATELET COUNT 421 x10e3/uL (140-360); RED BLOOD COUNT 5.05 x10e6/uL (4.3-5.7); RED CELL DISTRIBUTION WIDTH 15.1 % (11.7-14.4)
[2017-06-01] MEDS: INSULIN REGULAR, HUMAN 100 UNIT/1 ML 3ML VIAL SQ SCH ×4 (07:30→20:34)
[2017-06-01 08:00] VITALS: BP 161/79
[2017-06-01 08:17] LABS: ANION GAP 16.8 mmol/L (8-16); BLOOD UREA NITROGEN 18 mg/dL (7-26); BUN/CREATININE RATIO 16 (6-25); CALCIUM 9.6 mg/dL (8.4-10.2); CARBON DIOXIDE 23 mmol/L (22-29); CHLORIDE 107 mmol/L (98-107); CREATININE, SERUM 1.16 mg/dL (0.72-1.25); EST GLOMERULAR FILTRATION RATE > 60 ML/MIN (60-); GLUCOSE 127 mg/dL (74-118); POTASSIUM 3.8 mmol/L (3.5-5.1); SODIUM 143 mmol/L (136-145)
[2017-06-01] MEDS: NON-FORMULARY MEDICATION (Linagliptin (Tradjenta) 5 MG) PO SCH (09:00)
[2017-06-01] MEDS: MELOXICAM 7.5 MG TAB PO SCH (09:00)
[2017-06-01] MEDS: ASPIRIN 81 MG CHEW TAB PO SCH (09:00)
[2017-06-01] MEDS: METOPROLOL TARTRATE 50 MG TAB PO SCH ×2 (09:00→17:00)
[2017-06-01] MEDS: LISINOPRIL 10 MG TAB PO SCH (09:00)
[2017-06-01] MEDS: NIFEDIPINE CR 30 MG TAB PO SCH ×3 (09:00→20:35)
[2017-06-01] MEDS: DOCUSATE SODIUM LIQD 100 MG/10 ML UDC NG SCH ×2 (09:00→17:00)
[2017-06-01] MEDS: FENOFIBRATE 145 MG TAB PO SCH (09:00)
[2017-06-01] MEDS: CYCLOBENZAPRINE HCL 10 MG TAB PO SCH ×2 (09:00→17:00)
[2017-06-01] MEDS: SENNA-S TABLET PO SCH ×2 (09:00→17:00)
[2017-06-01] MEDS: SENNOSIDES 8.6 MG TAB PO SCH ×2 (09:00→17:00)
[2017-06-01] MEDS: FLUOXETINE HCL 20 MG CAP PO SCH (09:00)
[2017-06-01] MEDS: TAMSULOSIN HCL 0.4 MG CAP PO SCH (09:00)
[2017-06-01] MEDS: DICLOFENAC SOD 50 MG TAB PO SCH ×2 (09:00→17:00)
[2017-06-01] MEDS: NYSTATIN 100,000 UNITS/GM CRM 30GM TUBE TOP SCH ×2 (09:00→17:56)
[2017-06-01] MEDS: FAMOTIDINE 20 MG/2 ML VIAL IV SCH ×2 (09:41→17:54)
[2017-06-01] MEDS: LIDOCAINE 5% PATCH TP SCH (09:47)
[2017-06-01 12:00] VITALS: BP 145/83
[2017-06-01] MEDS ORDERED: PROPOFOL IV EMULSION 10 MG/ML 50 ML VIAL ONE (14:24)
[2017-06-01 20:00] VITALS: BP 125/97
[2017-06-01] MEDS: ATORVASTATIN 40 MG TAB PO SCH (20:33)
[2017-06-01] MEDS: CEFTRIAXONE SOD 1 GM VIAL IV SCH (20:33)
[2017-06-01] MEDS: MORPHINE SULFATE 2 MG/ML SYR IV PRN (21:40)
[2017-06-01] MEDS: DEXTROSE 5% 1,000 ML IV SCH (22:18)
[2017-06-01 22:49] VITALS: BP 125/97
[2017-06-02] VITALS (7 sets, daily range): BP systolic 152–174; BP diastolic 82–99
[2017-06-02] MEDS: LABETALOL HCL 5 MG/ML 20ML VIAL IV SCH ×4 (00:57→17:06)
[2017-06-02] MEDS: LEVOFLOXACIN 750MG/D5W 150ML 150 ML IV SCH (05:20)
[2017-06-02] MEDS: GABAPENTIN 100 MG CAP PO SCH ×3 (05:29→22:40)
[2017-06-02] MEDS: HYDRALAZINE HCL 25 MG TAB PO SCH ×3 (05:29→22:40)
[2017-06-02] MEDS: INSULIN REGULAR, HUMAN 100 UNIT/1 ML 3ML VIAL SQ SCH ×4 (07:30→20:15)
[2017-06-02] MEDS: SENNOSIDES 8.6 MG TAB PO SCH ×2 (09:00→16:57)
[2017-06-02] MEDS: NIFEDIPINE CR 30 MG TAB PO SCH ×2 (09:00→20:15)
[2017-06-02] MEDS: FENOFIBRATE 145 MG TAB PO SCH (09:00)
[2017-06-02] MEDS: SENNA-S TABLET PO SCH ×2 (09:00→16:57)
[2017-06-02] MEDS: ASPIRIN 81 MG CHEW TAB PO SCH (09:00)
[2017-06-02] MEDS: DOCUSATE SODIUM LIQD 100 MG/10 ML UDC NG SCH ×2 (09:00→16:55)
[2017-06-02] MEDS: TAMSULOSIN HCL 0.4 MG CAP PO SCH (09:00)
[2017-06-02] MEDS: MELOXICAM 7.5 MG TAB PO SCH (09:00)
[2017-06-02] MEDS: METOPROLOL TARTRATE 50 MG TAB PO SCH ×2 (09:00→16:56)
[2017-06-02] MEDS: CYCLOBENZAPRINE HCL 10 MG TAB PO SCH ×2 (09:00→16:55)
[2017-06-02] MEDS: FLUOXETINE HCL 20 MG CAP PO SCH (09:00)
[2017-06-02] MEDS: LISINOPRIL 10 MG TAB PO SCH (09:00)
[2017-06-02] MEDS: DICLOFENAC SOD 50 MG TAB PO SCH ×2 (09:00→16:57)
[2017-06-02] MEDS: NON-FORMULARY MEDICATION (Linagliptin (Tradjenta) 5 MG) PO SCH (09:00)
[2017-06-02] MEDS: LIDOCAINE 5% PATCH TP SCH (09:18)
[2017-06-02] MEDS: FAMOTIDINE 20 MG/2 ML VIAL IV SCH ×2 (09:19→17:05)
[2017-06-02] MEDS: NYSTATIN 100,000 UNITS/GM CRM 30GM TUBE TOP SCH ×2 (12:08→16:57)
--- NOTE | 2017-06-02 12:46 | Progress Note ---
DATE: June 02, 2017, at 11:50 in the morning. NEUROLOGICAL PROGRESS NOTE DIAGNOSES 1. Left cerebrovascular accident involving the left middle cerebral artery, ischemic. 2. Coronary artery disease. 3. Hypertension. 4. Diabetes mellitus, type 2. Today, the blood pressure is 168/82, pulse 77, afebrile. He is awake. His speech is improving. I am able to understand much better than before. Still has dysphagia. Plan for PEG. The extraocular movements are full. Right hemiparesis. The arm is still flaccid. The leg is able to elevate against gravity approximately 45 to 50 degrees. Plantar stimulation is extensor response on the right side. The neck is supple. Carotid pulsations are present bilaterally. There was no bruit. Laboratory: Today the blood sugar is 139. Yesterday, the sodium was 143, potassium 3.8, BUN 18, creatinine 1.16, estimated GFR greater than 60. CBC shows white count 14,500 yesterday, hemoglobin 15.1, hematocrit 43.5, platelets 421,000. Urinalysis is negative. Speech therapy and physical therapy are following the patient. He is a candidate for rehab. I have discussed also by telephone with his sister about his situation. Job#: [id number]
[2017-06-02] MEDS: MORPHINE SULFATE 2 MG/ML SYR IV PRN ×2 (13:36→18:11)
[2017-06-02] MEDS ORDERED: FENTANYL CITRATE/PF 100MCG/2 ML INJ ONE (14:47)
[2017-06-02] MEDS: ATORVASTATIN 40 MG TAB PO SCH (20:14)
[2017-06-03] VITALS: BP 149/82
[2017-06-03 04:00] VITALS: BP 164/102
[2017-06-03] MEDS: LEVOFLOXACIN 750MG/D5W 150ML 150 ML IV SCH (05:48)
[2017-06-03] MEDS: DEXTROSE 5% 1,000 ML IV SCH (05:48)
[2017-06-03] MEDS: LABETALOL HCL 5 MG/ML 20ML VIAL IV SCH ×4 (05:49→18:30)
[2017-06-03] MEDS: HYDRALAZINE HCL 25 MG TAB PO SCH ×4 (05:54→19:43)
[2017-06-03] MEDS: GABAPENTIN 100 MG CAP PO SCH ×4 (05:55→19:43)
[2017-06-03 06:47] LABS: BASOPHILS # (AUTO) 0.2 (0.0-0.1); BASOPHILS % 1.3 % (0.0-1.0); EOSINOPHILS # (AUTO) 0.6 (0.0-0.4); EOSINOPHILS % 5.1 % (0.0-6.0); HEMATOCRIT 47.6 % (38.2-49.6); HEMOGLOBIN 15.5 g/dL (14.0-18.0); LYMPHOCYTES # (AUTO) 3.6 (1.0-3.2); LYMPHOCYTES % 30.1 % (18.0-39.1); MEAN CORPUSCULAR HEMOGLOBIN 29.9 pg (28-32); MEAN CORPUSCULAR HGB CONC 32.6 g/dL (31-35); MEAN CORPUSCULAR VOLUME 91.9 fL (81-99); MONOCYTES # (AUTO) 1.3 (0.2-0.8); MONOCYTES % 10.3 % (4.4-11.3); NEUTROPHILS # (AUTO) 6.3 (2.1-6.9); NEUTROPHILS % 52.3 % (38.7-80.0); PLATELET COUNT 469 x10e3/uL (140-360); RED BLOOD COUNT 5.18 x10e6/uL (4.3-5.7); RED CELL DISTRIBUTION WIDTH 14.6 % (11.7-14.4)
[2017-06-03 07:11] LABS: ANION GAP 15.5 mmol/L (8-16); BLOOD UREA NITROGEN 15 mg/dL (7-26); BUN/CREATININE RATIO 13 (6-25); CALCIUM 9.6 mg/dL (8.4-10.2); CARBON DIOXIDE 23 mmol/L (22-29); CHLORIDE 103 mmol/L (98-107); CREATININE, SERUM 1.13 mg/dL (0.72-1.25); EST GLOMERULAR FILTRATION RATE > 60 ML/MIN (60-); GLUCOSE 127 mg/dL (74-118); POTASSIUM 3.5 mmol/L (3.5-5.1); SODIUM 138 mmol/L (136-145)
[2017-06-03] MEDS: INSULIN REGULAR, HUMAN 100 UNIT/1 ML 3ML VIAL SQ SCH ×4 (07:30→19:42)
[2017-06-03 08:01] VITALS: BP 157/85
--- NOTE | 2017-06-03 08:35 | Progress Note ---
DATE: June 02, 2017 TIME: 7:45 a.m. OVERNIGHT: No complaints. REVIEW OF SYSTEMS: Denies any dizziness. VITAL SIGNS: Reviewed. PHYSICAL EXAMINATION GENERAL: A tired-appearing man resting in bed. HEENT: Anicteric. CARDIOVASCULAR: Normal S1 and S2. LUNGS: Moderate breath sounds. ABDOMEN: Soft, nontender and nondistended. EXTREMITIES: No edema. Left leg with above-knee amputation, scar well healed. SKIN: Dry. NEUROLOGICAL: He has slurred speech. He has right arm 1/5 motor strength. PSYCHIATRIC: Flat affect. LABS: Reviewed. MEDICATIONS: Reviewed. ASSESSMENT: A 66-year-old man. 1. Acute stroke with right-sided weakness and slurred speech. 2. Dysphagia. 3. Obesity. 4. Diabetes mellitus, type 2. Hemoglobin A1c 8.9, LDL 84. 5. Acute kidney injury. 6. Acute bronchitis. 7. Coronary artery disease with history of stent. 8. Ambulatory dysfunction with left above-knee amputation. 9. Complex regional pain syndrome of the right shoulder. PLAN 1. Continue pain control and gabapentin. 2. PEG tube placement is pending. 3. Follow up ultrasound report of carotids. 4. Echocardiogram showed normal left ventricular ejection fraction. 5. Discharge planning. 6. Continue physical therapy. Job#: [id number]
--- NOTE | 2017-06-03 08:40 | Progress Note ---
DATE: June 03, 2017 TIME: 8:08 a.m. OVERNIGHT: No events. REVIEW OF SYSTEMS: Denies any dizziness. VITAL SIGNS: Reviewed. PHYSICAL EXAMINATION GENERAL: A tired-appearing man resting in bed. HEENT: Anicteric. He has an NG tube in place. CARDIOVASCULAR: Normal S1 and S2. LUNGS: Moderate breath sounds. ABDOMEN: Soft, nontender. EXTREMITIES: He has a left above-knee amputation. SKIN: Dry. PSYCHIATRIC: Flat affect. NEUROLOGICAL: Alert and oriented times 2. He moves all extremities except his right arm. Right arm has 1/5 motor strength. He has slurred speech. LABS: Reviewed. MEDICATIONS: Reviewed. ASSESSMENT: This is a 66-year-old man. 1. Acute stroke with right-sided weakness and slurred speech and dysphagia. 2. Obesity. 3. Diabetes mellitus, type 2. Hemoglobin A1c 8.9 and LDL 84. 4. Acute kidney injury. 5. Acute bronchitis. 6. Coronary artery disease with history of stent. 7. Ambulatory dysfunction with left above-knee amputation. 8. Complex regional pain syndrome of the right shoulder. PLAN 1. PEG tube placement is still pending. 2. Continue pain control. 3. Continue physical therapy. 4. Echocardiogram normal. 5. Discharge planning. 6. Mild leukocytosis. Leukocytosis has been resolving. 7. Glucose is well controlled. Job#: [id number]
[2017-06-03] MEDS: FAMOTIDINE 20 MG/2 ML VIAL IV SCH ×2 (08:55→17:40)
[2017-06-03] MEDS: NYSTATIN 100,000 UNITS/GM CRM 30GM TUBE TOP SCH ×2 (08:55→17:30)
[2017-06-03] MEDS: LIDOCAINE 5% PATCH TP SCH (08:55)
[2017-06-03] MEDS: FLUOXETINE HCL 20 MG CAP PO SCH (09:00)
[2017-06-03] MEDS: ASPIRIN 81 MG CHEW TAB PO SCH (09:00)
[2017-06-03] MEDS: NON-FORMULARY MEDICATION (Linagliptin (Tradjenta) 5 MG) PO SCH (09:00)
[2017-06-03] MEDS: MELOXICAM 7.5 MG TAB PO SCH (09:00)
[2017-06-03] MEDS: DICLOFENAC SOD 50 MG TAB PO SCH ×2 (09:00→17:00)
[2017-06-03] MEDS: FENOFIBRATE 145 MG TAB PO SCH (09:00)
[2017-06-03] MEDS: DOCUSATE SODIUM LIQD 100 MG/10 ML UDC NG SCH ×2 (09:00→17:00)
[2017-06-03] MEDS: SENNA-S TABLET PO SCH ×2 (09:00→17:00)
[2017-06-03] MEDS: LISINOPRIL 10 MG TAB PO SCH (09:00)
[2017-06-03] MEDS: NIFEDIPINE CR 30 MG TAB PO SCH ×2 (09:00→19:41)
[2017-06-03] MEDS: SENNOSIDES 8.6 MG TAB PO SCH ×2 (09:00→17:00)
[2017-06-03] MEDS: TAMSULOSIN HCL 0.4 MG CAP PO SCH (09:00)
[2017-06-03] MEDS: CYCLOBENZAPRINE HCL 10 MG TAB PO SCH ×2 (09:00→17:00)
[2017-06-03] MEDS: METOPROLOL TARTRATE 50 MG TAB PO SCH ×2 (09:00→17:00)
[2017-06-03 11:52] VITALS: BP 122/89
[2017-06-03 16:10] VITALS: BP 121/85
[2017-06-03] MEDS: MORPHINE SULFATE 2 MG/ML SYR IV PRN ×2 (18:38→23:41)
--- NOTE | 2017-06-03 18:42 | Operative Report ---
DATE OF PROCEDURE: June 01, 2017 REFERRING PHYSICIAN: Dr. Luan Nicholson. PROCEDURE PERFORMED: Esophagogastroduodenoscopy with possible percutaneous endoscopic gastrostomy tube placement. INDICATIONS FOR PROCEDURE: Dysphagia, status post CVA, NG tube feeding dependent. MEDICATIONS: Patient was done under MAC. Please see anesthesiologist's note. PROCEDURE: With the patient in the supine position, the flexible fiberoptic Olympus gastroscope was introduced into the esophagus under direct visualization without any difficulty. There was some patchy erythema noted in the distal esophagus. A minute tongue of velvety red mucosa was noted to extend proximally from GE junction that was biopsied to rule out Camp. The scope was then advanced with ease into the stomach traversing a small hiatal hernia. Mucosa overlying the antrum and the body revealed some diffuse erythema and low-grade to moderate edema and biopsies were obtained, sent to stain for H. pylori. The pylorus appeared to be of normal contour and shape. It was intubated with ease and the scope was advanced all way to the 2nd portion of the duodenum. The scope was then withdrawn slowly. The mucosa overlying the proximal 2nd portion and the duodenal bulb appeared to be within normal limits. The scope was then withdrawn back into the stomach and retroflexed. The mucosa overlying the fundus and cardia appeared to be within normal limits. The scope was then straightened out and no safe entry point could be delineated by external digital palpation and transabdominal illumination. The scope was subsequently withdrawn. Patient tolerated the procedure well. IMPRESSION 1. Distal esophagitis. 2. Rule out Camp esophagus. 3. Small hiatal hernia. 4. Gastritis. No safe entry point could be delineated by external digital palpation and transabdominal illumination. PLAN: Follow up histology. Will ask interventional radiology to insert a G-tube in the morning. Job#: [id number] GE cc:LUAN NICHOLSON MD
[2017-06-03] MEDS: ATORVASTATIN 40 MG TAB PO SCH (19:41)
[2017-06-03 20:00] VITALS: BP 154/89
[2017-06-04] VITALS (7 sets, daily range): BP systolic 114–156; BP diastolic 77–94
[2017-06-04] MEDS: LEVOFLOXACIN 750MG/D5W 150ML 150 ML IV SCH (05:45)
[2017-06-04] MEDS: LABETALOL HCL 5 MG/ML 20ML VIAL IV SCH ×4 (06:00→18:00)
[2017-06-04 06:45] LABS: BASOPHILS # (AUTO) 0.2 (0.0-0.1); BASOPHILS % 1.5 % (0.0-1.0); EOSINOPHILS # (AUTO) 0.5 (0.0-0.4); EOSINOPHILS % 4.1 % (0.0-6.0); HEMATOCRIT 50.4 % (38.2-49.6); HEMOGLOBIN 16.5 g/dL (14.0-18.0); LYMPHOCYTES # (AUTO) 4.3 (1.0-3.2); MEAN CORPUSCULAR HEMOGLOBIN 29.9 pg (28-32); MEAN CORPUSCULAR HGB CONC 32.7 g/dL (31-35); MEAN CORPUSCULAR VOLUME 91.3 fL (81-99); MONOCYTES # (AUTO) 1.5 (0.2-0.8); MONOCYTES % 12.4 % (4.4-11.3); NEUTROPHILS # (AUTO) 5.6 (2.1-6.9); NEUTROPHILS % 45.7 % (38.7-80.0); PLATELET COUNT 456 x10e3/uL (140-360); RED BLOOD COUNT 5.52 x10e6/uL (4.3-5.7); RED CELL DISTRIBUTION WIDTH 14.6 % (11.7-14.4)
[2017-06-04 07:02] LABS: ANION GAP 16.6 mmol/L (8-16); BLOOD UREA NITROGEN 16 mg/dL (7-26); BUN/CREATININE RATIO 13 (6-25); CALCIUM 9.9 mg/dL (8.4-10.2); CARBON DIOXIDE 23 mmol/L (22-29); CHLORIDE 104 mmol/L (98-107); CREATININE, SERUM 1.19 mg/dL (0.72-1.25); EST GLOMERULAR FILTRATION RATE > 60 ML/MIN (60-); GLUCOSE 114 mg/dL (74-118); POTASSIUM 3.6 mmol/L (3.5-5.1); SODIUM 140 mmol/L (136-145)
[2017-06-04] MEDS: INSULIN REGULAR, HUMAN 100 UNIT/1 ML 3ML VIAL SQ SCH ×4 (07:30→20:31)
--- NOTE | 2017-06-04 07:32 | Progress Note ---
DATE: June 04, 2017 TIME: 7:12 a.m. OVERNIGHT: PEG tube was not placed. Radiology had difficulty. REVIEW OF SYSTEMS: Denies any dizziness. PHYSICAL EXAMINATION VITAL SIGNS: Reviewed. GENERAL: A tired-appearing man resting in bed. HEENT: Anicteric. CARDIOVASCULAR: Normal S1 and S2. LUNGS: Moderate breath sounds. ABDOMEN: Soft and nontender. EXTREMITIES: He had a left above-knee amputation well-healed. SKIN: Dry. PSYCHIATRIC: Flat affect. NEUROLOGICAL: Alert and oriented times 2. Moves all extremities. He has weakness in the right arm about 1/5. He has slurred speech, but less slurred compared to yesterday. LABS: Reviewed. MEDICATIONS: Reviewed. ASSESSMENT: A 66-year-old man with: 1. Acute stroke with right-sided weakness and slurred speech and dysphagia. 2. Obesity. 3. Diabetes mellitus, type 2: Hemoglobin A1c 8.9, LDL 84. 4. Acute kidney injury. 5. Acute bronchitis. 6. Coronary artery disease with history of stent. 7. Ambulatory dysfunction with left above-knee amputation. 8. Complex regional pain syndrome of the right shoulder. PLAN 1. PEG tube probably will not be placed. He is able to tolerate some material by mouth now. 2. Continue pain control. 3. Continue physical therapy. 4. Echocardiogram normal. 5. Discharge planning to a skilled facility is pending. Job#: [id number] AIDEN
[2017-06-04] MEDS: FAMOTIDINE 20 MG/2 ML VIAL IV SCH ×2 (08:50→17:05)
[2017-06-04] MEDS: LIDOCAINE 5% PATCH TP SCH (08:50)
[2017-06-04] MEDS: LISINOPRIL 10 MG TAB PO SCH (09:00)
[2017-06-04] MEDS: CYCLOBENZAPRINE HCL 10 MG TAB PO SCH ×2 (09:00→17:05)
[2017-06-04] MEDS: SENNA-S TABLET PO SCH ×2 (09:00→17:05)
[2017-06-04] MEDS: DICLOFENAC SOD 50 MG TAB PO SCH ×2 (09:00→17:05)
[2017-06-04] MEDS: ASPIRIN 81 MG CHEW TAB PO SCH (09:00)
[2017-06-04] MEDS: NIFEDIPINE CR 30 MG TAB PO SCH ×2 (09:00→20:31)
[2017-06-04] MEDS: TAMSULOSIN HCL 0.4 MG CAP PO SCH (09:00)
[2017-06-04] MEDS: FENOFIBRATE 145 MG TAB PO SCH (09:00)
[2017-06-04] MEDS: NON-FORMULARY MEDICATION (Linagliptin (Tradjenta) 5 MG) PO SCH (09:00)
[2017-06-04] MEDS: DOCUSATE SODIUM LIQD 100 MG/10 ML UDC NG SCH ×2 (09:00→17:05)
[2017-06-04] MEDS: METOPROLOL TARTRATE 50 MG TAB PO SCH ×2 (09:00→17:05)
[2017-06-04] MEDS: MELOXICAM 7.5 MG TAB PO SCH (09:00)
[2017-06-04] MEDS: SENNOSIDES 8.6 MG TAB PO SCH ×2 (09:00→17:05)
[2017-06-04] MEDS: FLUOXETINE HCL 20 MG CAP PO SCH (09:00)
[2017-06-04] MEDS: MORPHINE SULFATE 2 MG/ML SYR IV PRN ×3 (12:29→22:51)
[2017-06-04] MEDS: GABAPENTIN 100 MG CAP PO SCH ×2 (14:00→20:32)
[2017-06-04] MEDS: HYDRALAZINE HCL 25 MG TAB PO SCH ×2 (14:00→20:31)
--- NOTE | 2017-06-04 15:16 | Diagnostic Imaging Report ---
PROCEDURE:X-RAY MODIFIED BARIUM SWALLOW COMPARISON:[facility], DX, MODIFIED BA. SWALLOW, 05/29/2017, 8:12. INDICATIONS:Not provided. DISCUSSION:Fluoroscopic examination was performed in conjunction with speech pathology, during swallowing of a variety of thin and thick liquid consistencies. Examination showed premature spillage of the base of the tongue and vallecula with mixed texture. Laryngeal penetration was noted with thick, nectar. Silent mild aspiration of nectar thick liquid was noted. Trace vallecular and perform sinus residue. CONCLUSION:Continued mild oral and mild to moderate oropharyngeal dysphagia with penetration and silent aspiration of nectar thick liquids. Please see the report from speech pathology for complete details. Rahul Nelson M.D. Dictated by: Rahul Nelson M.D. on 06/04/2017 at 15:16 Electronically approved by: Rahul Nelson M.D. on 06/04/2017 at 15:16
[2017-06-04] MEDS: DEXTROSE 5% 1,000 ML IV SCH ×2 (20:30→20:33)
[2017-06-04] MEDS: ATORVASTATIN 40 MG TAB PO SCH (20:30)
[2017-06-05] VITALS (7 sets, daily range): BP systolic 98–157; BP diastolic 70–88
[2017-06-05] MEDS: LABETALOL HCL 5 MG/ML 20ML VIAL IV SCH ×4 (00:15→17:01)
[2017-06-05] MEDS: LEVOFLOXACIN 750MG/D5W 150ML 150 ML IV SCH (06:07)
[2017-06-05] MEDS: HYDRALAZINE HCL 25 MG TAB PO SCH ×2 (06:08→13:47)
[2017-06-05] MEDS: GABAPENTIN 100 MG CAP PO SCH (06:08)
[2017-06-05] MEDS: INSULIN REGULAR, HUMAN 100 UNIT/1 ML 3ML VIAL SQ SCH ×3 (07:30→16:22)
[2017-06-05] MEDS: NON-FORMULARY MEDICATION (Linagliptin (Tradjenta) 5 MG) PO SCH (08:27)
[2017-06-05] MEDS: METOPROLOL TARTRATE 50 MG TAB PO SCH ×2 (08:27→17:00)
[2017-06-05] MEDS: ASPIRIN 81 MG CHEW TAB PO SCH (08:27)
[2017-06-05] MEDS: TAMSULOSIN HCL 0.4 MG CAP PO SCH (08:27)
[2017-06-05] MEDS: CYCLOBENZAPRINE HCL 10 MG TAB PO SCH ×2 (08:27→17:05)
[2017-06-05] MEDS: MELOXICAM 7.5 MG TAB PO SCH (08:27)
[2017-06-05] MEDS: FAMOTIDINE 20 MG/2 ML VIAL IV SCH ×2 (08:27→17:00)
[2017-06-05] MEDS: DOCUSATE SODIUM LIQD 100 MG/10 ML UDC NG SCH ×2 (08:27→17:00)
[2017-06-05] MEDS: SENNA-S TABLET PO SCH ×2 (08:28→17:00)
[2017-06-05] MEDS: SENNOSIDES 8.6 MG TAB PO SCH ×2 (08:28→17:00)
[2017-06-05] MEDS: FENOFIBRATE 145 MG TAB PO SCH (08:28)
[2017-06-05] MEDS: DICLOFENAC SOD 50 MG TAB PO SCH ×2 (08:28→17:00)
[2017-06-05] MEDS: FLUOXETINE HCL 20 MG CAP PO SCH (08:28)
[2017-06-05] MEDS: LIDOCAINE 5% PATCH TP SCH (08:28)
[2017-06-05] MEDS: NIFEDIPINE CR 30 MG TAB PO SCH (08:28)
[2017-06-05] MEDS: LISINOPRIL 10 MG TAB PO SCH (08:28)
[2017-06-05] MEDS ORDERED: CLOPIDOGREL BISULFATE 75 MG TAB PO SCH (09:00)
--- NOTE | 2017-06-05 12:54 | Progress Note ---
DATE: June 05, 2017 MEDICINE PROGRESS NOTE TIME OF SERVICE: 8 a.m. SUBJECTIVE: Overnight, patient passed swallow eval and now on mechanical soft diet. REVIEW OF SYSTEMS: Denies any chest pain. VITAL SIGNS: Reviewed. PHYSICAL EXAMINATION GENERAL APPEARANCE: A tired-appearing man resting in bed. HEENT: Anicteric. CARDIOVASCULAR: Normal S1/S2. LUNGS: Moderate breath sounds. ABDOMEN: Soft, nontender. EXTREMITIES: No edema. He has left above-knee amputation well healed. SKIN: Dry. PSYCHIATRIC: Normal affect. NEUROLOGICALLY: He is awake and alert and appropriate, moves all extremities, but he has weakness in the right arm and pain, tenderness of the right shoulder. He has slurred speech. LABS: Reviewed. MEDICATIONS: Reviewed. ASSESSMENT: A 66-year-old man. 1. Acute stroke with right-sided weakness and slurred speech/dysphagia. 2. Obesity. 3. Diabetes mellitus type 2. Hemoglobin A1c 8.9, LDL 84. 4. Acute kidney injury. 5. Acute bronchitis. 6. Coronary artery disease with a history of stent. 7. Ambulatory dysfunction with left [id number] amputation. 8. Complex regional pain syndrome of the right shoulder. PLAN 1. Continue mechanical soft diet. 2. Continue physical therapy. 3. Continue aspirin and medication regimen. 4. Echocardiogram normal. 5. Continue blood pressure control. 6. Continue cholesterol medications. 7. Continue Plavix 75 mg daily. 8. Discharge planning to skilled facility once approved. Job#: [id number] JAVI
[2017-06-05] MEDS: MORPHINE SULFATE 2 MG/ML SYR IV PRN (13:51)
[2017-06-05] MEDS ORDERED: LIDOCAINE 5% PATCH TP SCH (14:00)
[2017-06-05] MEDS ORDERED: GABAPENTIN 100 MG CAP PO SCH (14:00)
[2017-06-05] MEDS ORDERED: GABAPENTIN 300 MG CAP PO SCH (14:00)
--- NOTE | 2017-07-15 13:12 | Discharge Summary ---
PRINCIPAL DIAGNOSES 1. Acute stroke with right-sided weakness, slurred speech and dysphagia. 2. Obesity. 3. Diabetes mellitus, type 2. Glycosylated hemoglobin 8.9 and low-density lipoprotein 84. 4. Acute kidney injury. 5. Acute bronchitis. 6. Coronary artery disease with a history of stent. 7. Ambulatory dysfunction with left above-knee amputation. 8. Complex regional pain syndrome of the right shoulder. SECONDARY DIAGNOSIS: Hypertension. CHIEF COMPLAINT: Weakness. HISTORY OF PRESENT ILLNESS: The patient was found to have right-sided extremity weakness and was admitted for further evaluation and management. Please refer to the H and P for further details. HOSPITAL COURSE: The patient was found to have acute stroke with right-sided weakness, slurred speech and dysphagia. Also had obesity and diabetes mellitus, type 2. Hemoglobin A1c was 8.9, and LDL was 84. Acute kidney injury improved with IV fluids. Acute bronchitis was also treated. The patient had ambulatory dysfunction with left above-knee amputation. He also had complex regional pain syndrome of the right shoulder. The patient received physical therapy. An echocardiogram was also obtained, which was normal. He also received treatment for hypercholesterolemia and was treated with Plavix as well. The blood pressure was controlled. He received physical therapy, and the patient was transferred to a skilled facility for rehab services. Initially, he had difficulty with swallowing, subsequently tolerated a mechanical soft diet. DISCHARGE MEDICATIONS: Per electronic medical record. FOLLOWUP 1. With primary care physician in 1 week. 2. Neurology in 10 days. CONDITION ON DISCHARGE: Stable and improving. DISCHARGE LOCATION: Skilled facility. LUAN NICHOLSON MD Job#: [id number]
== END 2017-06-05 18:45 | DRG 65 ==
LOC: ER 15:53 → ERHOLD 20:49 → IMCU 21:43 → OBSVTOIN 05-24 15:13 → MED/SURG3 05-24 16:07
PROVIDERS: ADMIT Internal Medicine; ATTEND Internal Medicine
PROC: 0DB58ZX Excision of Esophagus, Via Natural or Artificial Opening Endoscopic, Diagnostic (ICD-10-PCS; 2017-06-01)
PROC: 0DB78ZX Excision of Stomach, Pylorus, Via Natural or Artificial Opening Endoscopic, Diagnostic (ICD-10-PCS; principal; 2017-06-01 15:30)
DX: I63.9 Cerebral infarction, unspecified (principal); G81.91 Hemiplegia, unspecified affecting right dominant side; N17.9 Acute kidney failure, unspecified; Z89.612 Acquired absence of left leg above knee; G90.50 Complex regional pain syndrome I, unspecified; E66.9 Obesity, unspecified; Z68.33 Body mass index [BMI] 33.0-33.9, adult; I10 Essential (primary) hypertension; I25.10 Atherosclerotic heart disease of native coronary artery without angina pectoris; Z95.5 Presence of coronary angioplasty implant and graft; I25.2 Old myocardial infarction; J20.9 Acute bronchitis, unspecified; R26.2 Difficulty in walking, not elsewhere classified; K44.9 Diaphragmatic hernia without obstruction or gangrene; K20.9 Esophagitis, unspecified; K29.70 Gastritis, unspecified, without bleeding
CPT/HCPCS: 36415; 43239; 70450; 71045; 74018; 74230; 80048; 80053; 80061; 81001; 82550; 82553; 82948; 83036; 84484; 85025; 85610; 85730; 87086; 87400; 88305; 88312; 93005; 93306; 93880; 94660; 96361; 96367; 96372; 97139; 99284; G0378; J0456; J0696; J1170; J1650; J2060; J2270; J2405; J2765; J7030; J7070

== ENCOUNTER 2017-06-17 18:19 | Inpatient (IN) | payer MEDICARE ==
[~2017-06-17] VITALS: Ht 182.9 cm; Wt 98.0 kg
[~2017-06-17 18:19] MED LIST: ASPIR 8181 MG PO; ATORVASTATIN CA20 MG PO; CIPRO500 MG PO; CLOPIDOGREL75 MG PO; DICLOFENAC SODI75 MG PO; FAMOTIDINE20 MG PO; FENOFIBRATE67 MG PO; FLUOXETINE HCL20 M1 PO; LISINOPRIL2.5 MG PO; MELOXICAM7.5 MG PO; METFORMIN HCL500 MG PO; METOPROLOL TART50 MG PO; TAMSULOSIN HCL0.4 MG PO; TRADJENTA5 MG PO
--- OUTSIDE RECORDS SUMMARY | 2017-06-17 18:22 | XMS REPORT | Continuity of Care Document ---
Author Author [facility] Organization [facility] Address [address] [place] [address] Phone Unavailable Care Team Providers Care Study Abroad Advisor Name Role Phone LANEY BARNES MD PCP Advance Directives Directive Response Recorded Date/Time Does the patient have an advance directive? No 05/23/17 11:25pm If yes, is advance directive on file with [facility]? No 05/23/17 11:25pm If not on file with [facility] will patient provide a copy? No 05/23/17 11:25pm Do you have a Directive to Physician? No 05/23/17 4:44pm Do you have a Medical Power of Parking Ramp Attendant? No 05/23/17 4:44pm Do you have an out of hospital Do Not Resuscitate Order? No 05/23/17 4:44pm Do you have any special needs we should be aware of? No 05/23/17 4:44pm Do you have a support person here with you today? Yes 05/23/17 4:44pm Did patient receive Notice of Privacy Practices? Yes 05/23/17 4:44pm Did patient receive patient rights and responsibilities? Yes 05/23/17 4:44pm Problems No problem information available. Medications Current Home Medications Medication Dose Units Route Directions Days Qty Instructions Start Date Aspirin (Aspir 81) 81 Mg Tablet.dr 81 Mg Oral Daily Atorvastatin Calcium 20 Mg Tablet 80 Mg Oral Bedtime 30 Tab Ciprofloxacin Hcl (Cipro) 500 Mg Tablet 500 Mg Oral Every 12 Hours 30 Tab Clopidogrel Bisulfate (Clopidogrel) 75 Mg Tablet 75 Mg Oral Daily 30 Tab Diclofenac Sodium 75 Mg Tablet.dr 75 Mg Oral Twice A Day THERAPEUTICALLY SUBSTITUTED WITH IBUPROFEN 600MG Famotidine 20 Mg Tab 20 Mg Oral Twice A Day 30 Tab Fenofibrate,Micronized (Fenofibrate) 67 Mg Capsule 160 Mg Oral Daily Fluoxetine Hcl 20 Mg Tablet 40 Mg Oral Daily Linagliptin (Tradjenta) 5 Mg Tablet 5 Mg Oral Daily Lisinopril 2.5 Mg Tablet 5 Mg Oral Daily 30 Tab Meloxicam 7.5 Mg Tablet 7.5 Mg Oral Daily 30 Tab Metformin Hcl 500 Mg Tablet 1,000 Mg Oral Twice A Day 60 Tab Metoprolol Tartrate 50 Mg Tablet 50 Mg Oral Twice A Day Tamsulosin Hcl 0.4 Mg Cap.er.24h 1 Tab Oral Daily Social History Social History Problem Response Recorded Date/Time Onset Date Status Hx Psychiatric Problems No 05/23/2017 11:25pm Not Applicable Not Applicable Hx Eating Disorder No 05/23/2017 11:25pm Not Applicable Not Applicable Hx Substance Use Disorder No 05/23/2017 11:25pm Not Applicable Not Applicable Hx Depression No 05/23/2017 11:25pm Not Applicable Not Applicable Hx Alcohol Use No 05/23/2017 11:25pm Not Applicable Not Applicable Hx Substance Use Treatment No 05/23/2017 11:25pm Not Applicable Not Applicable Hx Physical Abuse No 05/23/2017 11:25pm Not Applicable Not Applicable Smoking Status Start Date Stop Date Never Smoker Hospital Discharge Instructions No hospital discharge instruction information available. Plan of Care Discharge Date 06/05/17 6:45pm Disposition [facility] Prescriptions See Medication Section Functional Status Query Response Date Recorded FUNCTIONAL STATUS ` June 04, 2017 10:17am Assistive Devices None May 23, 2017 11:25pm Ambulation Ability 3 or more person assist May 23, 2017 11:25pm Toileting Ability Maximum Assistance June 05, 2017 9:00am Allergies, Adverse Reactions, Alerts No known allergies. Immunizations No immunization information available. Vital Signs Acute Vital Signs Vital Response Date/Time Temperature (Fahrenheit) 95.6 degrees F (97.6 - 99.5) 06/05/2017 3:35pm Pulse Pulse Rate (adult) 70 bpm (60 - 90) 06/05/2017 3:35pm Respiratory Rate 16 bpm (12 - 24) 06/05/2017 3:35pm Blood Pressure 129/77 mm Hg 06/05/2017 3:35pm Height 6 ft 0 in 05/23/2017 4:09pm Weight 250.03 lb 06/05/2017 12:00am Body Mass Index 33.9 kg/m^2 06/05/2017 12:00am Results Laboratory Results Test Name Result Units Flags Reference Collection Date/Time Result Date/ Time Comments White Blood Count 12.17 x10e3/uL H 4.8-10.8 06/04/2017 6:05am 2017 6:47am Red Blood Count 5.52 x10e6/uL 4.3-5.7 06/04/2017 6:05am 06/04/2017 6: 47am Hemoglobin 16.5 g/dL 14.0-18.0 06/04/2017 6:05am 06/04/2017 6:47am Hematocrit 50.4 % H 38.2-49.6 06/04/2017 6:05am 06/04/2017 6:47am Mean Corpuscular Volume 91.3 fL 81-99 06/04/2017 6:05am 06/04/2017 6: 47am Mean Corpuscular Hemoglobin 29.9 pg 28-32 06/04/2017 6:05am 06/04/2017 6:47am Mean Corpuscular Hemoglobin Concent 32.7 g/dL 31-35 06/04/2017 6:05am 06/04/2017 6:47am Red Cell Distribution Width 14.6 % H 11.7-14.4 06/04/2017 6:05am 2017 6:47am Platelet Count 456 x10e3/uL H 140-360 06/04/2017 6:05am 06/04/2017 6: 47am Neutrophils (%) (Auto) 45.7 % 38.7-80.0 06/04/2017 6:05am 06/04/2017 6: 47am Lymphocytes (%) (Auto) 35.0 % 18.0-39.1 06/04/2017 6:05am 06/04/2017 6: 47am Monocytes (%) (Auto) 12.4 % H 4.4-11.3 06/04/2017 6:05am 06/04/2017 6: 47am Eosinophils (%) (Auto) 4.1 % 0.0-6.0 06/04/2017 6:05am 06/04/2017 6: 47am Basophils (%) (Auto) 1.5 % H 0.0-1.0 06/04/2017 6:05am 06/04/2017 6: 47am IM GRANULOCYTES % 1.3 % H 0.0-1.0 06/04/2017 6:05am 06/04/2017 6:47am Neutrophils # (Auto) 5.6 2.1-6.9 06/04/2017 6:05am 06/04/2017 6:47am Lymphocytes # (Auto) 4.3 H 1.0-3.2 06/04/2017 6:05am 06/04/2017 6: 47am Monocytes # (Auto) 1.5 H 0.2-0.8 06/04/2017 6:05am 06/04/2017 6:47am Eosinophils # (Auto) 0.5 H 0.0-0.4 06/04/2017 6:05am 06/04/2017 6: 47am Basophils # (Auto) 0.2 H 0.0-0.1 06/04/2017 6:05am 06/04/2017 6:47am Absolute Immature Granulocyte (auto 0.16 x10e3/uL H 0-0.1 06/04/2017 6: 05am 06/04/2017 6:47am Prothrombin Time 13.3 seconds 11.9-14.5 05/23/2017 5:13pm 05/23/2017 5: 33pm Prothromb Time International Ratio 1.09 05/23/2017 5:13pm 2017 5:33pm Oral Anticoagulant Therapy INR Values: 1. Low Intensity Therapy 1.5 - 2.0 2. Moderate Intensity Therapy 2.0 - 3.0 3. High Intensity Therapy(1) 2.5 - 3.5 4. High Intensity Therapy(2) 3.0 - 4.0 5. Panic Value INR > 5.0 Activated Partial Thromboplast Time 25.8 seconds 23.8-35.5 05/23/2017 5: 13pm 05/23/2017 5:33pm Urine Color YELLOW YELLOW 05/23/2017 6:10pm 05/23/2017 6:51pm Urine Clarity CLEAR CLEAR 05/23/2017 6:10pm 05/23/2017 6:51pm Urine Specific [place] 1.025 1.010-1.025 05/23/2017 6:10pm 2017 6:51pm Urine pH 5 5 - 7 05/23/2017 6:10pm 05/23/2017 6:51pm Urine Leukocyte Esterase NEGATIVE NEGATIVE 05/23/2017 6:10pm 2017 6:51pm Urine Nitrite NEGATIVE NEGATIVE 05/23/2017 6:10pm 05/23/2017 6:51pm Urine Protein 1+ H NEGATIVE 05/23/2017 6:10pm 05/23/2017 6:51pm Urine Glucose (UA) 1+ H NEGATIVE 05/23/2017 6:10pm 05/23/2017 6:51pm Urine Ketones NEGATIVE NEGATIVE 05/23/2017 6:10pm 05/23/2017 6:51pm Urine Urobilinogen 0.2 mg/dL 0.2 - 1 05/23/2017 6:10pm 05/23/2017 6: 51pm Urine Bilirubin NEGATIVE NEGATIVE 05/23/2017 6:10pm 05/23/2017 6: 51pm Urine Blood 4+ H NEGATIVE 05/23/2017 6:10pm 05/23/2017 6:51pm Urine WBC 0-5 /HPF 0-5 05/23/2017 6:10pm 05/23/2017 7:01pm Urine RBC 21-50 /HPF H 0-5 05/23/2017 6:10pm 05/23/2017 7:01pm Urine Bacteria FEW /HPF NONE 05/23/2017 6:10pm 05/23/2017 7:01pm Urine Epithelial Cells RARE /LPF NONE 05/23/2017 6:10pm 05/23/2017 7: 01pm Sodium Level 140 mmol/L 136-145 06/04/2017 6:05am 06/04/2017 7:02am Potassium Level 3.6 mmol/L 3.5-5.1 06/04/2017 6:05am 06/04/2017 7:02am Chloride Level 104 mmol/L 98-107 06/04/2017 6:05am 06/04/2017 7:02am Influenza Virus Types A,B Antigen NEGATIVE NEGATIVE 05/23/2017 6:20pm 05/23/2017 7:07pm Carbon Dioxide Level 23 mmol/L 06/04/2017 6:05am 06/04/2017 7: 02am Anion Gap 16.6 mmol/L H 8-06/04/2017 6:05am 06/04/2017 7:02am Blood Urea Nitrogen 16 mg/dL 11-0506/04/2017 6:05am 06/04/2017 7:02am Creatinine 1.19 mg/dL 0.72-1.25 06/04/2017 6:05am 06/04/2017 7:02am BUN/Creatinine Ratio 13 10-0506/04/2017 6:05am 06/04/2017 7:02am Estimat Glomerular Filtration Rate > 60 ML/MIN 60- 06/04/2017 6:05am 7:02am Ranges were taken from the National Kidney Disease Education Program and the National Kidney Foundation literature. Reference ranges: 60 or greater: Normal 16-59 (for 3 consecutive months): Chronic kidney disease 15 or less: Kidney failure Glucose Level 114 mg/dL 74-118 06/04/2017 6:05am 06/04/2017 7:02am Calcium Level 9.9 mg/dL 8.4-10.2 06/04/2017 6:05am 06/04/2017 7:02am Bedside Glucose 118 mg/dL 70-120 06/05/2017 3:18pm 06/05/2017 3:52pm Meter ID: [id number] Hemoglobin A1c Percent 8.9 % H 4.0-7.0 05/24/2017 7:00am 05/24/2017 3: 29pm Total Bilirubin 0.4 mg/dL 0.2-1.2 05/23/2017 5:13pm 05/23/2017 5:40pm Aspartate Amino Transf (AST/SGOT) 29 IU/L 5-34 05/23/2017 5:13pm 2017 5:40pm Alanine Aminotransferase (ALT/SGPT) 29 IU/L 0-55 05/23/2017 5:13pm 01/2018 5:40pm Total Protein 8.5 g/dL H 6.5-8.1 05/23/2017 5:13pm 05/23/2017 5:40pm Albumin 3.9 g/dL 3.5-5.0 05/23/2017 5:13pm 05/23/2017 5:40pm Globulin 4.6 g/dL H 2.3-3.5 05/23/2017 5:13pm 05/23/2017 5:40pm Albumin/Globulin Ratio 0.8 0.8-2.0 05/23/2017 5:13pm 05/23/2017 5: 40pm Alkaline Phosphatase 59 IU/L 40-150 05/23/2017 5:13pm 05/23/2017 5: 40pm Triglycerides Level 127 MG/DL 0-149 05/24/2017 7:00am 05/24/2017 3: 51pm Cholesterol Level 139 MD/DL 0-199 05/24/2017 7:00am 05/24/2017 3:51pm Less than 200 mg/dL Low Risk 201 - 239 mg/dL Borderline Risk 240 mg/dl and greater High Risk LDL Cholesterol 84 MG/DL 60-130 05/24/2017 7:00am 05/24/2017 3:51pm HDL Cholesterol 30 MG/DL L 40-60 05/24/2017 7:00am 05/24/2017 3:51pm Cholesterol/HDL Ratio 4.6 3.9-4.7 05/24/2017 7:00am 05/24/2017 3: 51pm Creatine Kinase 69 IU/L 30-200 05/24/2017 3:50pm 05/24/2017 4:20pm Creatine Kinase MB 1.70 ng/mL 0.00-5.00 05/24/2017 3:50pm 05/24/2017 4: 28pm Troponin I < 0.001 ng/mL 0-0.300 05/24/2017 3:50pm 05/24/2017 4:28pm Procedures Procedure Status Date Provider(s) EGD with biopsy Active 05/29/17 SUNG WHYTE MD EGD with biopsy Completed 06/01/17 SUNG WHYTE MD Computed tomography of brain without radiopaque contrast Active 05/23/17 TAMARA KU MD Computed tomography of brain without radiopaque contrast Active 05/25/17 BOBBY KATZ MD Encounters Encounter Location Arrival/Admit Date Discharge/Depart Date Attending Provider Discharged Inpatient [facility] 05/24/17 3:13pm 06/05/17 6:45pm LUAN NICHOLSON MD
--- OUTSIDE RECORDS SUMMARY | 2017-06-17 18:22 | XMS REPORT | Clinical Summary ---
Author Author [facility] Organization [facility] Address Unknown Phone Unavailable Care Team Providers Care Shoer Name Role Phone Alina Bryson MD PCP [...] Only Cardiology Brenda Del Angel MD after 06/16/2016 Family History Medical History Relation Name Comments [...] INFLUENZA VACCINE 11/11/2016 Results Not on fileafter 06/16/2016 Insurance Payer Benefit Subscriber ID Type Phone Address Plan / Group MEDICARE MEDICARE xxxxxxxxxx Medicare [place], [place] [id number] amily [id number] [address]
--- NOTE | 2017-06-17 19:49 | Diagnostic Imaging Report ---
EXAMINATION: Head CT without contrast. HISTORY:Status post fall, on anticoagulants. COMPARISON:CT brain from 05/25/2017. TECHNIQUE: Multidetector axial images were obtained from the foramen magnum to the vertex without contrast. The images were reconstructed using brain and bone algorithms. Thin section brain images were reformatted into coronal and sagittal planes. Intravenous contrast: None IMAGE QUALITY: Limited evaluation due to metallic streak artifacts, from a metallic plate that overlies an old right parietal craniectomy. FINDINGS: Skull/scalp: Expected postoperative changes from right parietal craniectomy with a large overlying metallic plate. Parenchyma: Suboptimal evaluation from the level of the vertex to the level of the body of lateral ventricles. Persistent focal hypodensity in right thalamus and left caudate head represents chronic lacunar infarct. Interval development of focal hypodensity in left medina radiata represents evolving acute or subacute vascular insult. Nonspecific bilateral frontoparietal patchy white matter hypodensity are likely related to small vessel ischemic changes. Arteries: No density suggestive of thrombosis. Dural sinuses: No abnormal density suggestive of thrombosis. Ventricles: No hydrocephalus or displacement. Extra-axial spaces: No abnormal density. Brain volume: Normal for age. Craniocervical junction: No mass, Chiari malformation, or basilar invagination. Sella: No mass. Paranasal/mastoid sinuses: Imaged portions unremarkable. IMPRESSION: 1. Suboptimal evaluation from the level of the vertex to the level of body of lateral ventricles due to metallic streak artifacts, status post right parietal craniectomy and metallic plate placement. 2. Despite the limitations, interval development of evolving acute or subacute vascular insult in left medina radiata. 3. Chronic lacunar infarct in right thalamus and left caudate head. 4. Mild supratentorial white matter microvascular ischemic changes. Signed by: Dr. Serena Ventura M.D. on 06/17/2017 7:46 PM
--- NOTE | 2017-06-17 19:56 | Diagnostic Imaging Report ---
History: Fall. Comparison studies: None Technique: Axial images were obtained through the cervical region.. Coronal and sagittal images reconstructed from the axial data.. Intravenous contrast: None Image quality: Suboptimal evaluation as C7 vertebral body is not completely included in the field of view. Findings: Fractures: None. Soft tissue injuries: None. Atlantoaxial articulation: Intact. Apparent anterior translation of left posterior arch of C1 on C2 is positional, as the head is tilted. Alignment: Normal lordosis. No scoliosis. Cervicomedullary junction: No abnormalities. The foramen magnum is patent. Soft tissues: No abnormalities. Vertebrae: No fractures, infection or neoplasm. Degenerative changes: C2-C3: Posterior disc osteophyte complex without significant canal stenosis. C3-C4: Mild left foraminal stenosis due to facet and uncovertebral arthrosis. C4-C5: Mild bilateral foraminal stenosis due to facet and uncovertebral arthrosis. C5-C6: Mild right and moderate left foraminal stenosis due to facet and uncovertebral arthrosis. C6-C7: Mild bilateral foraminal stenosis due to facet and uncovertebral arthrosis.. IMPRESSION: 1. No acute cervical spine fracture or dislocation. Suboptimal evaluation as C7 vertebral body is not completely included in the field of view. 2. Ligament, spinal cord and or vascular abnormalities cannot be excluded on the basis of this examination. 3. Cervical spondylosis as detailed above. Signed by: Dr. Serena Ventura M.D. on 06/17/2017 7:52 PM
[2017-06-17] MEDS ORDERED: SODIUM CHLORIDE 0.9% 1000ML 1,000 ML IV SCH (20:00)
[2017-06-17 20:22] LABS: BASOPHILS # (AUTO) 0.2 (0.0-0.1); BASOPHILS % 0.8 % (0.0-1.0); EOSINOPHILS # (AUTO) 0.1 (0.0-0.4); EOSINOPHILS % 0.6 % (0.0-6.0); HEMATOCRIT 53.7 % (38.2-49.6); HEMOGLOBIN 17.3 g/dL (14.0-18.0); LYMPHOCYTES % 19.8 % (18.0-39.1); MEAN CORPUSCULAR HEMOGLOBIN 29.8 pg (28-32); MEAN CORPUSCULAR HGB CONC 32.2 g/dL (31-35); MEAN CORPUSCULAR VOLUME 92.4 fL (81-99); MONOCYTES # (AUTO) 1.4 (0.2-0.8); MONOCYTES % 7.2 % (4.4-11.3); NEUTROPHILS # (AUTO) 14.1 (2.1-6.9); NEUTROPHILS % 70.7 % (38.7-80.0); PLATELET COUNT 410 x10e3/uL (140-360); RED BLOOD COUNT 5.81 x10e6/uL (4.3-5.7); RED CELL DISTRIBUTION WIDTH 16.3 % (11.7-14.4)
[2017-06-17 20:32] LABS: INR 1.22; PROTHROMBIN TIME 14.5 seconds (11.9-14.5)
[2017-06-17 20:33] LABS: PARTIAL THROMBOPLASTIN TIME 21.7 seconds (23.8-35.5)
[2017-06-17 20:42] LABS: ALBUMIN 3.4 g/dL (3.5-5.0); ALBUMIN/GLOBULIN RATIO 0.7 (0.8-2.0); ANION GAP 20.3 mmol/L (8-16); CALCIUM 10.1 mg/dL (8.4-10.2); CREATININE, SERUM 1.42 mg/dL (0.72-1.25); POTASSIUM 4.3 mmol/L (3.5-5.1)
[2017-06-17 20:48] LABS: CREATINE KINASE MB 2.2 ng/mL (0-5.0)
[2017-06-17] MEDS ORDERED: DEXTROSE 50% SYRINGE 50 ML IV PRN (21:00)
[2017-06-17] MEDS ORDERED: ONDANSETRON HCL INJ 2 MG/ML VIAL IV PRN (21:00)
[2017-06-17] MEDS: INSULIN REGULAR, HUMAN 100 UNIT/1 ML 3ML VIAL SQ SCH (21:23)
[2017-06-17] MEDS: SODIUM CHLORIDE 0.45% 1,000 ML IV SCH (22:10)
[2017-06-18] VITALS (8 sets, daily range): BP systolic 142–169; BP diastolic 74–108
[2017-06-18] MEDS: SODIUM CHLORIDE 0.45% 1,000 ML IV SCH ×3 (05:38→21:34)
--- NOTE | 2017-06-18 06:37 | Diagnostic Imaging Report ---
EXAMINATION: Head CT without contrast. HISTORY:Fall, slurred speech. COMPARISON:CT brain from 06/17/2017. TECHNIQUE: Multidetector axial images were obtained from the foramen magnum to the vertex without contrast. The images were reconstructed using brain and bone algorithms. Thin section brain images were reformatted into coronal and sagittal planes. Intravenous contrast: None IMAGE QUALITY: Limited evaluation due to metallic streak artifacts from metallic plate overlying right parietal craniectomy. FINDINGS: See impression IMPRESSION: No gross acute intracranial hemorrhage. No change since CT brain from 06/17/2017. Persistent findings: 1. Evolving acute or subacute vascular insult in left medina radiata. 2. Chronic lacunar infarct in right thalamus and left caudate head. 3. Mild supratentorial white matter microvascular ischemic changes. 4. Expected postoperative changes from prior right parietal craniectomy with metallic plate placement results in suboptimal evaluation due to significant metallic streak artifacts. Signed by: Dr. Serena Ventura M.D. on 06/18/2017 6:33 AM
[2017-06-18 07:04] LABS: BASOPHILS # (AUTO) 0.2 (0.0-0.1); EOSINOPHILS # (AUTO) 0.1 (0.0-0.4); EOSINOPHILS % 0.8 % (0.0-6.0); HEMATOCRIT 50.6 % (38.2-49.6); HEMOGLOBIN 15.9 g/dL (14.0-18.0); LYMPHOCYTES # (AUTO) 3.5 (1.0-3.2); LYMPHOCYTES % 21.5 % (18.0-39.1); MEAN CORPUSCULAR HEMOGLOBIN 29.8 pg (28-32); MEAN CORPUSCULAR HGB CONC 31.4 g/dL (31-35); MEAN CORPUSCULAR VOLUME 94.8 fL (81-99); MONOCYTES # (AUTO) 1.2 (0.2-0.8); MONOCYTES % 7.1 % (4.4-11.3); NEUTROPHILS # (AUTO) 11.3 (2.1-6.9); NEUTROPHILS % 68.7 % (38.7-80.0); PLATELET COUNT 398 x10e3/uL (140-360); RED BLOOD COUNT 5.34 x10e6/uL (4.3-5.7)
[2017-06-18 07:17] LABS: ALBUMIN 3.1 g/dL (3.5-5.0); ALBUMIN/GLOBULIN RATIO 0.7 (0.8-2.0); ANION GAP 14.8 mmol/L (8-16); CALCIUM 9.6 mg/dL (8.4-10.2); CREATININE, SERUM 1.39 mg/dL (0.72-1.25); POTASSIUM 3.8 mmol/L (3.5-5.1)
[2017-06-18] MEDS: INSULIN REGULAR, HUMAN 100 UNIT/1 ML 3ML VIAL SQ SCH ×4 (07:30→21:00)
--- NOTE | 2017-06-18 07:57 | History and Physical ---
PRIMARY CARE PHYSICIAN: Dr. Soto CHIEF COMPLAINT: Fall. HISTORY OF PRESENT ILLNESS: This is a 66-year-old man recently diagnosed with image-negative acute stroke. Had significant dysphagia at that time. PEG tube attempted by GI services, but unsuccessful. Subsequently, the patient is able to swallow a modified diet. Sent to [facility] for rehab services, and now falling out of his chair at [facility]. Here CT scan of the brain does show a stroke, but this likely is a stroke that he had the previous admission and now showing up on imaging. The patient cognitively is at baseline. His also states that he is at baseline meaning the baseline that he was at prior to discharge from this hospital to the [facility]. He has had markedly reduced oral intake for the past 2 days. The patient's states that he has been having microaspiration. Therefore, his diet was discontinued. He has been dehydrated. Labs do support these findings. He has been started on IV fluids and admitted for further evaluation and management. states that she wants a PEG tube placed at this time. Radiology has been consulted for PEG tube placement. The patient denies any shoulder pain. Denies any shortness of breath. PAST MEDICAL HISTORY: Diabetes mellitus, type 2, hypertension, stroke, myocardial infarction, status post stent in January 2017, ambulatory dysfunction with left above-knee amputation due to injury on the job many years ago, acute stroke with right-sided weakness, slurred speech and dysphagia in May 2017, diabetes mellitus, type 2, hemoglobin A1c 8.9, LDL 84 in May 2017, obesity, acute bronchitis, acute kidney injury. PAST SURGICAL HISTORY: Left above-knee amputation, coronary artery stent in January 2017. ALLERGIES: PER ELECTRONIC MEDICAL RECORD. FAMILY HISTORY/SOCIAL HISTORY: Patient is . No alcohol, illicits or cigarettes. MEDICATIONS: Per electronic medical record. REVIEW OF SYSTEMS: Denies any chest pain or shortness of breath. PHYSICAL EXAMINATION VITAL SIGNS: Reviewed. GENERAL: A tired-appearing man resting in bed. HEENT: Anicteric. CARDIOVASCULAR: Normal S1 and S2. LUNGS: Moderate breath sounds. ABDOMEN: Soft, nontender and nondistended. EXTREMITIES: He has left above-knee amputation stump that is well-healed. SKIN: Dry. PSYCHIATRIC: Flat affect. NEUROLOGICAL: Alert and oriented times 2. He moves all extremities except his right arm. He has limited movement in his right leg. LABS: Reviewed. MEDICATIONS: Reviewed. ASSESSMENT AND PLAN: This is a 66-year-old man with: 1. Subacute stroke: Computerized tomography scan does support these findings. This likely is a stroke that occurred on the prior admission at which time the computerized tomography was negative at that time. Will obtain a repeat computerized tomography this morning and re-evaluate. 2. Severe dysphagia: Unsuccessful percutaneous endoscopic gastrostomy tube placement by gastroenterology on previous admission. Therefore, will get radiology for placement of percutaneous endoscopic gastrostomy tube now. The patient needs nutrition. 3. Dehydration and hyponatremia: Rehydrate and reassess. 4. Marked leukocytosis: Will obtain a chest x-ray and consider antibiotics. 5. Metabolic acidosis and acute kidney injury: Rehydrate and reassess. 6. Diabetes mellitus, type 2: Hemoglobin A1c 8.9, LDL 84 in May 2017. Will continue regimen. 7. Ambulatory dysfunction: Physical therapy consultation. 8. Prophylaxis: Will use heparin 5000 q.12 h. and Pepcid. 9. Disposition: Percutaneous endoscopic gastrostomy tube placement. Once placed, the patient can be transitioned back to [facility] for continued physical therapy and rehab services. I have discussed this with his at bedside. Job#: [id number] AIDEN
--- NOTE | 2017-06-18 08:40 | Diagnostic Imaging Report ---
PROCEDURE:CHEST SINGLE (PORTABLE) TECHNIQUE:Portable AP chest INDICATION:Leukocytosis; CVA COMPARISON:None. FINDINGS: Lungs are clear and symmetrically inflated. No pleural effusions. Normal heart size. Mild aortic arch calcification. Intact skeleton. Left shoulder arthroplasty. CONCLUSION: No acute abnormality. Dictated by: Jermaine Higuera M.D. on 06/18/2017 at 8:41 Electronically approved by: Jermaine Higuera M.D. on 06/18/2017 at 8:41
[2017-06-18] MEDS: ASPIRIN 81 MG CHEW TAB PO SCH (09:00)
[2017-06-18] MEDS ORDERED: CLOPIDOGREL BISULFATE 75 MG TAB PO SCH (09:00)
[2017-06-18] MEDS: LEVOFLOXACIN 500MG/D5W 100ML 100 ML IV SCH (09:30)
[2017-06-18] MEDS: FAMOTIDINE 20 MG/2 ML VIAL IV SCH ×2 (09:30→17:28)
[2017-06-18] MEDS: HEPARIN SOD (PORCINE) 5,000 UNIT/ML VIAL SC SCH ×2 (10:00→22:05)
[2017-06-18] MEDS ORDERED: SODIUM CHLORIDE 0.9% 1000ML 1,000 ML ONE (14:24)
[2017-06-18] MEDS ORDERED: FENTANYL CITRATE/PF 100MCG/2 ML INJ ONE (14:24)
[2017-06-18] MEDS ORDERED: MIDAZOLAM HCL 2 MG/2 ML VIAL ONE (14:24)
[2017-06-18] MEDS ORDERED: LIDOCAINE HCL 2% LOCAL 20 ML VIAL ONE (14:32)
[2017-06-18] MEDS ORDERED: SODIUM CHLORIDE 0.9% 500ML 500 ML ONE (14:32)
[2017-06-18] MEDS ORDERED: IOPAMIDOL 370 MG/ML 200 ML INFUS..BTL INJ ONE (14:39)
[2017-06-18] MEDS: SODIUM CHLORIDE 0.9% 250ML IRRIG IR SCH ×2 (16:15→20:15)
--- NOTE | 2017-06-18 20:10 | Consultation ---
DATE OF CONSULTATION: NO DICTATION. 7 seconds. Job#: [id number] GH
--- NOTE | 2017-06-18 20:17 | Consultation ---
DATE OF CONSULTATION: June 18, 2017 CHIEF COMPLAINT: Aphasia and malnutrition. HISTORY OF PRESENT ILLNESS: The patient is a 66-year-old male with recent acute stroke with inability to swallow. The patient has been having poor oral intake; therefore, attempt at PEG tube placement was unsuccessful. Patient, therefore, needed an open placement of gastrostomy tube for feeding purpose. PAST MEDICAL HISTORY: Positive for hypertension, diabetes, coronary artery disease with history of PA, history of stroke, peripheral vascular disease, and history of renal insufficiency. PAST SURGICAL HISTORY: Positive for left above the knee amputation, coronary artery bypass in 2017. SOCIAL HABITS: No history of alcohol abuse or smoking. REVIEW OF SYSTEMS: Not obtainable. ALLERGIES: NO KNOWN DRUG ALLERGIES. PHYSICAL EXAMINATION: VITALS: Stable, is afebrile. GENERAL: Patient is awake, responsive, but nonverbal. HEENT: Nonicteric. NECK: Supple. LUNGS: Clear. HEART: Regular rate and rhythm. ABDOMEN: Soft and nontender. EXTREMITIES: No cyanosis or edema. Patient's white cell count is 16,000, hemoglobin of 16. Creatinine of 1.4. INR 1.2. Chest x-ray no acute abnormalities. ASSESSMENT: Aphasia secondary to recent stroke. PLAN: Insertion of gastrostomy tube under anesthesia. Attendant risks discussed. Job#: [id number]
[2017-06-18] MEDS: ATORVASTATIN 40 MG TAB PO SCH (21:00)
[2017-06-19] VITALS (7 sets, daily range): BP systolic 146–178; BP diastolic 76–90
[2017-06-19] MEDS: SODIUM CHLORIDE 0.9% 250ML IRRIG IR SCH ×6 (00:15→20:15)
[2017-06-19] MEDS: INSULIN REGULAR, HUMAN 100 UNIT/1 ML 3ML VIAL SQ SCH ×4 (07:30→20:36)
[2017-06-19] MEDS: LEVOFLOXACIN 500MG/D5W 100ML 100 ML IV SCH (07:59)
[2017-06-19] MEDS: ASPIRIN 81 MG CHEW TAB PO SCH (09:00)
[2017-06-19] MEDS: FAMOTIDINE 20 MG/2 ML VIAL IV SCH ×2 (09:20→17:10)
[2017-06-19] MEDS: HEPARIN SOD (PORCINE) 5,000 UNIT/ML VIAL SC SCH (09:59)
[2017-06-19] MEDS ORDERED: DEXTROSE 5%/0.45% SOD CHL 1,000 ML IV ONE (10:15)
[2017-06-19 11:14] LABS: BILIRUBIN,URINE NEGATIVE (NEGATIVE); KETONES,URINE NEGATIVE (NEGATIVE); LEUKOCYTE ESTERASE ,URINE NEGATIVE (NEGATIVE); NITRITE,URINE NEGATIVE (NEGATIVE); PROTEIN,URINE DIPSTICK NEGATIVE (NEGATIVE); URINE UROBILINOGEN 0.2 mg/dL (0.2 - 1)
[2017-06-19 11:16] LABS: CLARITY,URINE CLEAR (CLEAR); COLOR,URINE AMBER (YELLOW)
[2017-06-19 11:44] LABS: BACTERIA,URINE RARE /HPF; EPITHELIAL CELLS,URINE RARE /LPF; URIC ACID CRYSTALS,URINE RARE (FEW); WBC,URINE (MAN) 0-5 /HPF (0-5)
[2017-06-19] MEDS: HYDRALAZINE HCL 20 MG/ML VIAL IV PRN (12:30)
[2017-06-19] MEDS ORDERED: FENTANYL CITRATE/PF 100MCG/2 ML INJ ONE (14:55)
[2017-06-19] MEDS ORDERED: DEXTROSE 5%/0.45% SOD CHL 1,000 ML IV SCH (15:30)
--- NOTE | 2017-06-19 15:46 | Consultation ---
DATE OF CONSULTATION: June 19, 2017, at 2:30 in the evening. NEUROLOGICAL CONSULTATION ATTENDING PHYSICIAN: Ellis Lazaro MD REASON FOR CONSULTATION: Previous stroke. This is a 66-year-old male who was hospitalized here on May 24, 2017, with history of left hemispheric stroke in the territory of the middle cerebral artery with residual right hemiplegia and expressive and some receptive aphasia. The patient was having dysphagia at the beginning, but it improved. The patient had complete neurological workup including CT scan of the brain and carotid Dopplers and physical therapy. The patient was transferred for rehab at [facility]. Apparently, he fell from a chair and became more obtunded and more weak on the right side, the reason for which he was brought to the emergency room for further evaluation. The patient has been admitted with a diagnosis of left CVA old, right hemiparesis, and dysphagia. At this time, consultation has been done with the surgeon for a PEG. For details of past history, please see previous admission. This neuro consultation has been to re-evaluate for possible new stroke. As before, he has hypertension, diabetes mellitus, previous craniotomy on the right side. PHYSICAL EXAMINATION VITAL SIGNS: Blood pressure 172/85, pulse 80, temperature 97.3. LUNGS: Clear to auscultation. HEART: Regular sinus rhythm. No murmur. ABDOMEN: Moderately obese. No organomegaly. EXTREMITIES: He is amputated above the knee on the left side. NEUROLOGIC: He is awake. He follows commands well. His speech is slurred, barely understandable. The extraocular movements are full. Visual ennis are normal. Right facial weakness, central tongue, and right hemiparesis, which is old. Extensor plantar response on the right side. LABORATORY WORKUP: CBC shows white count on admission 19,900, today 16,400 with hemoglobin at 15.9, hematocrit 50.6, platelets 398,000. Chemistry: Sodium 154, potassium 3.8, BUN 36, creatinine 1.39, estimated GFR 51, glucose 125. Liver enzymes are all normal. Urinalysis is negative. CT scan of the brain was done in the emergency room. Impression is: 1) Evolving acute and subacute vascular insult in the left medina radiata. 2) Cranial lacunar infarct in the right thalamic and left calvarium head. 3) Supratentorial white matter microvascular ischemic changes. 4) Posterior postoperative changes from previous right parietal craniectomy. IMPRESSION 1. Status post old left middle cerebral artery stroke. 2. Diabetes mellitus, type 2. 3. Hypertension. 4. Dysphagia. Patient has not suffered any acute and does not seem to be a subacute stroke. The patient seems to be dehydrated. Now he is on IV fluids. Continue physical therapy and is scheduled for a PEG. Job#: [id number]
[2017-06-19] MEDS ORDERED: ETOMIDATE 2 MG/ML 10 ML INJ IV ONE (17:45)
[2017-06-19] MEDS ORDERED: VASOPRESSIN INJ 20 UNIT/ML VIAL ONE (17:45)
[2017-06-19] MEDS: ATORVASTATIN 40 MG TAB PO SCH ×2 (20:37→20:39)
[2017-06-20] VITALS (7 sets, daily range): BP systolic 154–181; BP diastolic 78–97
[2017-06-20] MEDS: SODIUM CHLORIDE 0.9% 250ML IRRIG IR SCH ×3 (00:15→08:15)
[2017-06-20] MEDS: HYDRALAZINE HCL 20 MG/ML VIAL IV PRN ×3 (02:48→22:27)
[2017-06-20] MEDS: HYDROMORPHONE 1MG/1ML INJ IV PRN ×3 (03:04→19:40)
[2017-06-20] MEDS: INSULIN REGULAR, HUMAN 100 UNIT/1 ML 3ML VIAL SQ SCH ×4 (07:30→21:00)
[2017-06-20] MEDS: LEVOFLOXACIN 500MG/D5W 100ML 100 ML IV SCH (07:46)
[2017-06-20] MEDS: FAMOTIDINE 20 MG/2 ML VIAL IV SCH ×2 (08:25→17:35)
[2017-06-20 08:37] LABS: BASOPHILS # (AUTO) 0.1 (0.0-0.1); BASOPHILS % 0.8 % (0.0-1.0); EOSINOPHILS # (AUTO) 0.3 (0.0-0.4); EOSINOPHILS % 1.9 % (0.0-6.0); HEMOGLOBIN 15.5 g/dL (14.0-18.0); LYMPHOCYTES # (AUTO) 4.7 (1.0-3.2); LYMPHOCYTES % 29.2 % (18.0-39.1); MEAN CORPUSCULAR HEMOGLOBIN 29.9 pg (28-32); MEAN CORPUSCULAR HGB CONC 31.6 g/dL (31-35); MEAN CORPUSCULAR VOLUME 94.4 fL (81-99); MONOCYTES # (AUTO) 1.5 (0.2-0.8); MONOCYTES % 9.4 % (4.4-11.3); NEUTROPHILS # (AUTO) 9.3 (2.1-6.9); NEUTROPHILS % 57.8 % (38.7-80.0); PLATELET COUNT 301 x10e3/uL (140-360); RED BLOOD COUNT 5.19 x10e6/uL (4.3-5.7); RED CELL DISTRIBUTION WIDTH 15.9 % (11.7-14.4)
[2017-06-20 08:53] LABS: ANION GAP 16.6 mmol/L (8-16); BLOOD UREA NITROGEN 20 mg/dL (7-26); BUN/CREATININE RATIO 18 (6-25); CALCIUM 9.8 mg/dL (8.4-10.2); CARBON DIOXIDE 20 mmol/L (22-29); CHLORIDE 122 mmol/L (98-107); CREATININE, SERUM 1.14 mg/dL (0.72-1.25); EST GLOMERULAR FILTRATION RATE > 60 ML/MIN (60-); GLUCOSE 132 mg/dL (74-118); POTASSIUM 3.6 mmol/L (3.5-5.1); SODIUM 155 mmol/L (136-145)
[2017-06-20] MEDS: ASPIRIN 81 MG CHEW TAB PO SCH (09:00)
[2017-06-20] MEDS ORDERED: BUPIVACAINE 0.5%/EPI 30 ML SDV INJ ONE (09:12)
[2017-06-20] MEDS ORDERED: FENTANYL CITRATE/PF 100MCG/2 ML INJ ONE (11:04)
--- NOTE | 2017-06-20 11:25 | Operative Report ---
DATE OF PROCEDURE: June 20, 2017 PREOPERATIVE DIAGNOSIS: Dysphagia. POSTOPERATIVE DIAGNOSIS: Dysphagia. OPERATIVE PROCEDURE: Diagnostic laparoscopy, placement of gastrostomy tube. ANESTHESIA: General, Dr. Fuentes. INDICATIONS: A 66-year-old male with history of acute stroke with resulting dysphagia. The family has consented for placement of a gastrostomy tube with all attendant risks discussed. DESCRIPTION OF PROCEDURE: Patient was brought to the OR and intubated. Abdomen was prepped with alcohol and draped in a sterile fashion. A left upper quadrant direct port access was carried out, and insufflation then began. Under direct vision, other port sites were placed in the supraumbilical and right upper quadrant. Adhesion from prior surgery was noted and adhesion taken down with LigaSure instrument, exposing the stomach. We then converted to open approach with upper midline incision going through the midline linea alba. The antrum of the stomach was identified, and it was reachable to the anterior abdominal wall in the left upper quadrant. We then passed a 20-Persian PEG tube through the left upper quadrant abdominal wall, and a pursestring stitch of 2-0 Vicryl was placed in the antrum of the stomach. A gastrotomy was then made within the pursestring stitch and the mushroom was then inserted into the stomach as the pursestring stitch was tied. We placed another pursestring stitch of 2-0 silk outside of the initial one to further seal the stomach around the PEG tube. The PEG tube was then pulled up against the anterior abdominal wall, and additional 3-0 silk stitches were placed between the stomach and the peritoneum of the anterior abdominal wall. The operative field was irrigated. The midline fascia was closed using running #1 PDS and the skin with lan. Patient tolerated the procedure well, was extubated and transported to the recovery room. Estimated blood loss was 5 mL. Job#: [id number]
[2017-06-20] MEDS ORDERED: DEXTROSE 5% 500ML 500 ML IV ONE (12:00)
[2017-06-20] MEDS ORDERED: SEVOFLURANE INHAL SOLN 250 ML PEN BTL ONE (14:56)
[2017-06-20] MEDS ORDERED: NEOSTIGMINE 5 MG/5ML SYR ONE (14:56)
[2017-06-20] MEDS ORDERED: ONDANSETRON HCL INJ 2 MG/ML VIAL ONE (14:56)
[2017-06-20] MEDS ORDERED: GLYCOPYRROLATE INJ 1MG/ 5 ML SYR ONE (14:56)
[2017-06-20] MEDS ORDERED: ROCURONIUM BROMIDE 10 MG/ML 5ML VIAL ONE (14:56)
[2017-06-20] MEDS ORDERED: DEXAMETHASONE SOD PHOS INJ 4 MG/ML VIAL ONE (14:56)
[2017-06-20] MEDS ORDERED: PROPOFOL IV EMULSION 10 MG/ML 20 ML VIAL ONE (14:56)
[2017-06-20] MEDS ORDERED: LIDOCAINE HCL 2% LOCAL INJ 5 ML SDV VIAL INJ ONE (14:56)
[2017-06-20] MEDS: ATORVASTATIN 40 MG TAB PO SCH (21:00)
[2017-06-21] VITALS (7 sets, daily range): BP systolic 149–163; BP diastolic 70–96
[2017-06-21] MEDS: HYDROMORPHONE 1MG/1ML INJ IV PRN ×2 (01:47→11:25)
[2017-06-21] MEDS: INSULIN REGULAR, HUMAN 100 UNIT/1 ML 3ML VIAL SQ SCH ×4 (07:30→21:10)
[2017-06-21] MEDS: LEVOFLOXACIN 500MG/D5W 100ML 100 ML IV SCH (07:57)
[2017-06-21 08:14] LABS: BASOPHILS # (AUTO) 0.1 (0.0-0.1); BASOPHILS % 0.9 % (0.0-1.0); EOSINOPHILS # (AUTO) 0.3 (0.0-0.4); EOSINOPHILS % 2.1 % (0.0-6.0); HEMOGLOBIN 14.4 g/dL (14.0-18.0); LYMPHOCYTES # (AUTO) 3.5 (1.0-3.2); LYMPHOCYTES % 22.2 % (18.0-39.1); MEAN CORPUSCULAR HEMOGLOBIN 29.8 pg (28-32); MONOCYTES # (AUTO) 1.7 (0.2-0.8); MONOCYTES % 11.1 % (4.4-11.3); NEUTROPHILS # (AUTO) 9.7 (2.1-6.9); NEUTROPHILS % 62.3 % (38.7-80.0); PLATELET COUNT 253 x10e3/uL (140-360); RED BLOOD COUNT 4.84 x10e6/uL (4.3-5.7); RED CELL DISTRIBUTION WIDTH 16.2 % (11.7-14.4)
[2017-06-21 08:34] LABS: ANION GAP 15.6 mmol/L (8-16); BLOOD UREA NITROGEN 14 mg/dL (7-26); BUN/CREATININE RATIO 13 (6-25); CALCIUM 9.1 mg/dL (8.4-10.2); CARBON DIOXIDE 21 mmol/L (22-29); CHLORIDE 120 mmol/L (98-107); CREATININE, SERUM 1.07 mg/dL (0.72-1.25); EST GLOMERULAR FILTRATION RATE > 60 ML/MIN (60-); GLUCOSE 153 mg/dL (74-118); MAGNESIUM 1.5 MG/DL (1.3-2.1); POTASSIUM 3.6 mmol/L (3.5-5.1); SODIUM 153 mmol/L (136-145)
[2017-06-21] MEDS: FAMOTIDINE 20 MG/2 ML VIAL IV SCH ×2 (09:10→17:28)
[2017-06-21] MEDS: ASPIRIN 81 MG CHEW TAB PO SCH (16:00)
[2017-06-21] MEDS ORDERED: MAGNESIUM SULFATE 2GM/50ML 50 ML IV ONE (18:30)
[2017-06-21] MEDS: ATORVASTATIN 40 MG TAB PO SCH (21:09)
[2017-06-21] MEDS: ACETAMINOPHEN/CODEINE 300MG - 30MG TAB GT PRN (21:17)
[2017-06-22] VITALS: BP 146/89
[2017-06-22] MEDS: ACETAMINOPHEN/CODEINE 300MG - 30MG TAB GT PRN (02:20)
[2017-06-22 04:00] VITALS: BP 162/100
[2017-06-22] MEDS: HYDRALAZINE HCL 20 MG/ML VIAL IV PRN (04:41)
[2017-06-22 06:56] LABS: ANION GAP 11.2 mmol/L (8-16); BLOOD UREA NITROGEN 14 mg/dL (7-26); BUN/CREATININE RATIO 13 (6-25); CALCIUM 8.9 mg/dL (8.4-10.2); CARBON DIOXIDE 24 mmol/L (22-29); CHLORIDE 119 mmol/L (98-107); CREATININE, SERUM 1.07 mg/dL (0.72-1.25); EST GLOMERULAR FILTRATION RATE > 60 ML/MIN (60-); GLUCOSE 180 mg/dL (74-118); POTASSIUM 3.2 mmol/L (3.5-5.1); SODIUM 151 mmol/L (136-145)
[2017-06-22] MEDS: INSULIN REGULAR, HUMAN 100 UNIT/1 ML 3ML VIAL SQ SCH ×2 (07:40→11:45)
[2017-06-22] MEDS: LEVOFLOXACIN 500MG/D5W 100ML 100 ML IV SCH (07:45)
[2017-06-22 08:00] VITALS: BP 171/82
[2017-06-22] MEDS: FAMOTIDINE 20 MG/2 ML VIAL IV SCH (08:25)
[2017-06-22] MEDS: ASPIRIN 81 MG CHEW TAB PO SCH (08:25)
[2017-06-22] MEDS ORDERED: POTASSIUM CHLORIDE 20MEQ/15ML UDC GT ONE (11:30)
[2017-06-22 12:00] VITALS: BP 147/78
[2017-06-22 16:00] VITALS: BP 115/56
--- NOTE | 2017-06-23 07:21 | Diagnostic Imaging Report ---
Nasogastric tube placement; percutaneous gastrostomy June 18, 2017 Pre-Procedure Diagnosis: Stroke. Malnutrition. Post-procedure Diagnosis:Stroke. Malnutrition. Bull Riveter: Gloria Higuera Septic Tank Service Technician: None Sedation: Moderate sedation was provided with intravenous fentanyl and Versed. Heart rate, rhythm and oxygen saturation were monitored in real-time by a dedicated interventional radiology nurse under my direct supervision. Blood pressure was monitored in 5 minute increments. 1% lidocaine was used for local anesthesia. Total sedation time: 60 minutes Radiation Dose: 221.8 cGycm2 (Dose Area Product) Fluoroscopy time: 1.6 minutes Estimate blood loss: <5 mL Blood administered: None Complications: None Implants/Grafts: Nasogastric tube Specimen: None Procedure: Informed consent was obtained and the patient placed supine. A timeout was performed. The right liver was sonographically marked. The abdomen was prepped and draped in standard sterile fashion. A KMP catheter was advanced through the right nostril to the stomach. The stomach was partially insufflated with air. An 18-gauge singlewall needle was used to access the stomach percutaneously via fluoroscopic guidance. Contrast injection confirmed placement. I attempted to dilate the tract, but the stomach could not be adequately insufflated using available hardware. As such, I believed it was unsafe to proceed with continued gastrostomy placement and the procedure was aborted. The KMP catheter was exchanged for a standard nasogastric tube over a wire. The NG tube was in connected to vacuum suction. There were no complications. Impression: 1. Aborted gastrostomy placement. 2. Successful fluoroscopically guided gastrostomy placement. Recommendations: 1. The nasogastric tube will be connected to continuous low wall suction to allow the small percutaneous hole in the anterior stomach wall to heal. This NG tube should not be removed without IR or surgical input. 2. Surgical gastrostomy placement. Events and recommendations were discussed in detail with Dr. Dwyer at the conclusion of the procedure. This report was generated with voice-recognition technology. Errors in copy room technician can occur. Please interpret accordingly and contact a radiologist if there are any questions regarding the report. Signed by: Dr. Jermaine Higuera M.D. on 06/23/2017 7:17 AM
--- NOTE | 2017-06-23 08:17 | Discharge Summary ---
PRIMARY CARE PHYSICIAN: Dr. Soto PERTINENT HISTORY AND PHYSICAL FINDINGS: Mr. Vaughn is a 66-year-old man that was recently diagnosed with image-negative acute stroke. He had significant dysphagia at that time. A PEG tube was attempted by GI services, but was unsuccessful. Subsequently, the patient was able to swallow modified diet. He was sent to the [facility] for rehabilitation services, and then fell out of his chair at the [facility]. Here at [facility], the CT scan of the brain showed a stroke, but likely a stroke that he had had previous to admission, and now just showing up on imaging. The patient is nonverbal and cognitively at baseline. The patient's had stated also that he was at baseline prior to the discharge from this hospital to the [facility]. He had markedly reduced oral intake for the 2 days prior to admission. The patient's described microaspiration. Therefore, his diet was discontinued. He has subsequently been dehydrated. He was started on IV fluids. The patient's stated that she wanted a PEG tube placed at the time. Interventional radiology was consulted for PEG tube placement. Gastrostomy placement failed on June 18, 2017. Surgical placement was recommended. Gastrostomy tube was placed by surgery by Dr. Capps on June 20, 2017. PAST MEDICAL HISTORY: Includes type 2 diabetes mellitus, hypertension, stroke, myocardial infarction, ambulatory dysfunction with left above-knee amputation due to injury on the job many years ago, stent in January 2017, acute stroke with right-sided weakness, slurred speech and dysphagia in May 2017, hemoglobin A1c of 8.9, LDL 84 in May 2017, obesity, acute bronchitis, acute kidney injury. FAMILY AND SOCIAL HISTORY: Includes the patient is . No alcohol, illicits or cigarettes. ALLERGIES: NO KNOWN ALLERGIES. ADMITTING DIAGNOSES 1. Subacute stroke. 2. Severe dysphagia. 3. Dehydration and hyponatremia. 4. Marked leukocytosis. 5. Metabolic acidosis and acute kidney injury. 6. Type 2 diabetes mellitus. 7. Ambulatory dysfunction. Other consulting physicians include Dr. Ronal Dwyer who completed the history and physical for Dr. Lazaro, and Dr. Tyler Arita with neurology. The CT scan of the brain that was done in the emergency room showed evolving acute and subacute vascular insult in the left medina radiata, cranial lacunar infarct on the right thalamic and left calvarium head, supratentorial white matter microvascular ischemic changes and posterior postoperative changes from the previous right partial craniectomy. Dr. Arita's impression included status post old left middle cerebral artery stroke, diabetes, type 2, hypertension, and dysphagia. Per Dr. Arita, the patient had not suffered any acute and does not seem to be a subacute stroke. After the PEG placement on June 20, 2017, the patient was generally stable. Yesterday, his sodium was 153 and today 151. Additional labs today, potassium 3.2, chloride 119, CO2 24, BUN 14, creatinine 1.07. GFR greater than 60. Glucose 180. Magnesium 1.9. Fingerstick blood glucose level 145. Potassium chloride 40 mEq once via PEG ordered for today. BUN and creatinine are exactly the same today as they were yesterday. Continue free water at 250 mL via the PEG every 4 hours. He is currently receiving Jevity 1.2 dannie tube feedings at 30 mL an hour via the PEG, and the RN reports residuals of 5 mL, 6 mL. PHYSICAL EXAMINATION VITAL SIGNS: Temperature 98.1, heart rate 105, blood pressure 171/82 with a MAP of 111, respiratory rate 22, oxygen saturation 95%. GENERAL: The patient is in no acute distress lying supine, awake, moaning. LUNGS: Clear. Respirations are even and unlabored. Extraocular eye movements intact. NECK: Supple. No lymphadenopathy or thyromegaly. CARDIOVASCULAR: Regular rate and rhythm without murmurs. Not receiving IV fluids at present. ABDOMEN: Bowel sounds positive. Soft. EXTREMITIES: Without pitting edema or signs or symptoms of DVT in the right leg. He has a history of a left AKA. NEUROLOGICAL: No movement in the right arm. The right arm is slightly swollen, which is his norm, status post stroke. He is nonverbal, but he makes good eye contact. He has a small approximately 0.5-inch diameter laceration at the right forehead that is open to air without drainage. DISCHARGE DIAGNOSES 1. Ruled out subacute stroke. 2. Dysphagia, status post percutaneous endoscopic gastrostomy placement on June 20, 2017. 3. Hypernatremia, improving. 4. Acute kidney injury, resolved. 5. Hypomagnesemia, resolved. 6. Hypokalemia. 7. Type 2 diabetes mellitus. The patient will be discharged to [facility]. Continue current tube feeds. Dilaudid was discontinued yesterday, and Tylenol No. 3 initiated. Activity level as tolerated. Maintain fall precautions when out of bed to chair. DICTATED BY KADIE PAIZ, LABEL CODER AMANDA LAZARO MD Job#: [id number] AIDEN
== END 2017-06-22 15:29 | DRG 327 ==
LOC: ER 18:19 → ERHOLD 21:06 → MED/SURG3 21:23 → OBSVTOIN 06-19 14:35
PROVIDERS: ADMIT Internal Medicine; ATTEND Internal Medicine
PROC: 0DH60UZ Insertion of Feeding Device into Stomach, Open Approach (ICD-10-PCS; principal; 2017-06-20 09:00)
DX: R13.10 Dysphagia, unspecified (principal); N17.9 Acute kidney failure, unspecified; E87.0 Hyperosmolality and hypernatremia; E83.42 Hypomagnesemia; E87.1 Hypo-osmolality and hyponatremia; I69.359 Hemiplegia and hemiparesis following cerebral infarction affecting unspecified side; E87.2 Acidosis; I69.321 Dysphasia following cerebral infarction; E86.0 Dehydration; I25.2 Old myocardial infarction; R26.81 Unsteadiness on feet; Z89.612 Acquired absence of left leg above knee; I69.320 Aphasia following cerebral infarction; I69.319 Unspecified symptoms and signs involving cognitive functions following cerebral infarction; E78.5 Hyperlipidemia, unspecified; W18.30XA Fall on same level, unspecified, initial encounter; Z91.81 History of falling; E87.6 Hypokalemia; Z95.5 Presence of coronary angioplasty implant and graft; E11.9 Type 2 diabetes mellitus without complications; Z79.4 Long term (current) use of insulin; S01.81XA Laceration without foreign body of other part of head, initial encounter; I69.391 Dysphagia following cerebral infarction
CPT/HCPCS: 36415; 43752; 49440; 70450; 71045; 72125; 74470; 76942; 80048; 80053; 81001; 82550; 82553; 82948; 83735; 84484; 85025; 85610; 85730; 87086; 92522; 96361; 96367; 97139; 99284; G0009; G0378; J0360; J1100; J1170; J1644; J1956; J2001; J2250; J2405; J7030; J7040; J7060; Q9967